=== PATIENT | female | born 1980 | race Hispanic/Latino ===

== ENCOUNTER 2017-09-26 21:04 | Emergency (ER) | payer SELFPAY ==
[2017-09-26] MEDS ORDERED: MEPERIDINE HCL 25 MG/0.5 ML ONE (21:37)
[2017-09-26] MEDS ORDERED: ONDANSETRON 4 MG/2 ML VIAL ONE (21:37)
[2017-09-26 21:50] LABS: Absolute Lymphocytes (CBC) 1.9 K/uL (0.7-4.9); Absolute Monocytes 0.8 K/uL (0.1-1.3); Absolute Neutrophil 4.4 K/uL (1.8-8.0); Basophils % 0.8 % (0-1.3); Eosinophils % 0.4 % (0-4.4); Hematocrit 27.8 % (36.0-45.0); Lymphocytes % 26.1 % (15.3-44.8); MCH 19.9 pg (27.0-35.0); MCV 63.5 fL (80-100); MPV 9.1 fL (7.6-11.3); Monocytes % 11.4 % (3.3-12.3); RBC Red Blood Cell Count 4.38 M/uL (3.86-4.86)
[2017-09-26 21:55] LABS: BUN Blood Urea Nitrogen 9 mg/dL (6-20); Bicarbonate 23 mEq/L (21-31); Glucose Level 105 mg/dL (65-120); Potassium 3.6 mEq/L (3.6-5.0); Sodium Level 137 mEq/L (135-145)
[2017-09-26 23:10] LABS: Urine Bacteria <20 /HPF (<20); Urine Culture Reflex Order NOT NEEDED; Urine RBC <5 /HPF (NONE SEEN)
[2017-09-26 23:11] LABS: Urine Blood NEGATIVE (NEG); Urine Glucose NEGATIVE (NEG); Urine Protein NEGATIVE (NEG)
[2017-09-26 23:15] LABS: Blood Morphology Comment NOTED (NOT SEEN); Hypochromasia 2+; Ovalocytes 2+; Platelet Estimate ADEQ; Target Cells 1+; Urine White Blood Cell Casts OK
[2017-09-26 23:16] LABS: Polychromasia 1+
--- NOTE | 2017-09-27 00:34 | ER ---
Nurse's Notes [facility] Name: Anais Andujar Age: 37 yrs Sex: Female : 1980 Arrival Date: 09/26/2017 Time: 21:06 Bed 16 Private MD: Diagnosis: Chest pain, unspecified Presentation: 09/26 21:18 Presenting complaint: Patient states: Started having chest pain this morning, pt ea reports the chest pain continued throughout the day and got worse. Transition of care: patient was not received from another setting of care. Onset of symptoms was September 26, 2017. Risk Assessment: Do you want to hurt yourself or someone else? Patient reports no desire to harm self or others. Initial Sepsis Screen: Does the patient meet any 2 criteria? No. Patient's initial sepsis screen is negative. Does the patient have a suspected source of infection? No. Patient's initial sepsis screen is negative. Care prior to arrival: None. 21:18 Method Of Arrival: Wheelchair ea 21:18 Acuity: RUDOLPH 3 ea Triage Assessment: 21:18 General: Appears uncomfortable, Behavior is anxious, crying, restless. Pain: Complains ea of pain in anterior aspect of left upper chest Pain radiates to back Pain currently is 10 out of 10 on a pain scale. Quality of pain is described as stabbing, Pain began This AM. EENT: No signs and/or symptoms were reported regarding the EENT system. Neuro: No deficits noted. Cardiovascular: Patient's skin is warm and dry. Respiratory: Airway is patent Respiratory effort is even, unlabored, Respiratory pattern is symmetrical, tachypnea. GI: Abdomen is non-distended. : No signs and/or symptoms were reported regarding the genitourinary system. Derm: Skin is dry, Skin is normal, Skin temperature is warm. Musculoskeletal: Circulation, motion, and sensation intact. 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 - Social history:: Smoking status: Patient/guardian denies using tobacco. - Ebola Screening: : No symptoms or risks identified at this time. - Family history:: not pertinent. - Hospitalizations: : No recent hospitalization is reported. Screenin:52 Abuse screen: Denies threats or abuse. Nutritional screening: No deficits noted. ea Tuberculosis screening: No symptoms or risk factors identified. Fall Risk None identified. Assessment: 21:05 Reassessment: Patient and/or family updated on plan of care and expected duration. Pain ea level reassessed. Patient is alert, oriented x 3, equal unlabored respirations, skin warm/dry/pink. Patient states symptoms have improved. 22:15 Reassessment: Patient and/or family updated on plan of care and expected duration. Pain ea level reassessed. Patient is alert, oriented x 3, equal unlabored respirations, skin warm/dry/pink. Patient states symptoms have improved. 23:45 Reassessment: Patient and/or family updated on plan of care and expected duration. Pain ea level reassessed. Patient is alert, oriented x 3, equal unlabored respirations, skin warm/dry/pink. Patient states symptoms have improved. 09/27 00:41 Reassessment: Patient and/or family updated on plan of care and expected duration. Pain ea level reassessed. Patient is alert, oriented x 3, equal unlabored respirations, skin warm/dry/pink. Patient states symptoms have improved. 00:55 Reassessment: Patient and/or family updated on plan of care and expected duration. Pain ea level reassessed. Patient is alert, oriented x 3, equal unlabored respirations, skin warm/dry/pink. Discharge instructions given to patient, verbalized the understanding of instruction. Patient states symptoms have improved. Vital Signs: 09/26 21:15 BP 140 / 100; Pulse 118; Resp 18; Pulse Ox 100% on R/A; Weight 63.5 kg; Height 5 ft. 5 ea in. (165.10 cm); Pain 10/10; 21:30 BP 132 / 85; Pulse 103; Resp 18; Pulse Ox 99% ; ea 22:00 BP 126 / 80; Pulse 73; Resp 18; Pulse Ox 100% on R/A; ea 23:00 BP 112 / 70; Pulse 83; Resp 18; Pulse Ox 99% ; Pain 10; ea 09/27 00:37 BP 114 / 79; Pulse 71; Resp 18; Pulse Ox 100% on R/A; mw2 09/26 21:15 Body Mass Index 23.30 (63.50 kg, 165.10 cm) ea ED Course: 09/26 21:06 Patient arrived in ED. am2 21:18 Patient has correct armband on for positive identification. Bed in low position. Call ea light in reach. Side rails up X 1. 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 Pulse ox on. NIBP on. 21:18 Arm band placed on right wrist. Patient placed in an exam room, on a stretcher, on ea pulse oximetry. 21:19 Papo Johnson MD is Attending Physician. rn 21:20 Inserted saline lock: 20 gauge in right forearm, using aseptic technique. Blood ea collected. 21:21 Irasema Dooley, ADRIANO is Primary Nurse. ea 21:30 Triage completed. ea 21:55 Patient maintains SpO2 saturation greater than 95% on room air. ea 22:03 XRAY Chest (1 view) In Process Unspecified. EDMS 22:[address] via wheelchair. vr 22:41 CT Aorta for Dissection In Process Unspecified. EDMS 22:58 CT completed. Patient tolerated procedure well. Patient moved back from CT. 2 06 00:42 No provider procedures requiring assistance completed. ea 01:08 IV discontinued, intact, bleeding controlled, No redness/swelling at site. Pressure ea dressing applied. Administered Medications: 09/26 21:36 CANCELLED (Physician Discretion): morphine 4 mg IVP once ea 21:40 Drug: Demerol 25 mg Route: IVP; Site: right forearm; ea 22:30 Follow up: Response: No adverse reaction; Pain is decreased ea 21:40 Drug: Zofran 2 mg Route: IVP; Site: right forearm; ea 22:30 Follow up: Response: No adverse reaction ea Outcome: 09/27 00:34 Discharge ordered by . rn 01:08 Discharged to home ambulatory, with family. ea 01:08 Condition: improved 01:08 Discharge instructions given to patient, Instructed on discharge instructions, follow up and referral plans. medication usage, Demonstrated understanding of instructions, follow-up care, medications, Prescriptions given X 1. 01:12 Patient left the ED. ea Signatures: Dispatcher [employer] EDMS Papo Johnson MD MD rn Davis, Victoria vr Moreno, Amanda on license of [facility] Sumi Saenz [facility] Dooley, Irasema, RN RN ea Torsten, MyKena mw2
--- NOTE | 2017-09-27 00:34 | EDPHYS ---
Physician Documentation [facility] Name: Anais Andujar Age: 37 yrs Sex: Female : 1980 Arrival Date: 09/26/2017 Time: 21:06 Bed 16 Private MD: ED Physician Papo Johnson HPI: 09/26 22:48 This 37 yrs old Female presents to ER via Wheelchair with complaints of Chest rn Pain > 30 y/o, Numbness Of Arm, Breathing Difficulty. 22:48 The patient or guardian reports chest pain that is located primarily in the anterior rn chest wall, left. The pain does not radiate. Associated signs and symptoms: Pertinent positives: shortness of breath, Pertinent negatives: abdominal pain, cough, diaphoresis, syncope, vomiting. The chest pain is described as a pressure, squeezing. Duration: The patient or guardian reports multiple episodes, that are intermittent. Modifying factors: The symptoms are alleviated by nothing. the symptoms are aggravated by palpation of area. Severity of pain: At its worst the pain was moderate in the emergency department the pain is unchanged. The patient has not experienced similar symptoms in the past. The patient has not recently seen a physician. 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 - Social history:: Smoking status: Patient/guardian denies using tobacco. - Ebola Screening: : No symptoms or risks identified at this time. - Family history:: not pertinent. - Hospitalizations: : No recent hospitalization is reported. ROS: 22:48 Constitutional: Negative for fever, chills, and weight loss, Eyes: Negative for injury, rn pain, redness, and discharge, Neck: Negative for injury, pain, and swelling, Cardiovascular: + chest pain Respiratory: + sob, no cough Abdomen/GI: Negative for abdominal pain, nausea, vomiting, diarrhea, and constipation, MS/Extremity: Negative for injury and deformity, Skin: Negative for injury, rash, and discoloration, Neuro: Negative for headache, weakness, numbness, tingling, and seizure. Exam: 22:48 Constitutional: This is a well developed, well nourished patient who is awake, alert, rn appears in pain and grabbing chest, hyperventilating Head/Face: Normocephalic, atraumatic. Eyes: Pupils equal round and reactive to light, extra-ocular motions intact. Lids and lashes normal. Conjunctiva and sclera are non-icteric and not injected. Cornea within normal limits. Periorbital areas with no swelling, redness, or edema. Neck: Trachea midline, no thyromegaly or masses palpated, and no cervical lymphadenopathy. Supple, full range of motion without nuchal rigidity, or vertebral point tenderness. No Meningismus. Chest/axilla: + reproducible left anterior chest wall, no crepitus Cardiovascular: tachycardic, regular, no murmur Respiratory: + hyperventilating, no wheezing, equal bilaterally Abdomen/GI: Soft, non-tender, with normal bowel sounds. No distension or tympany. No guarding or rebound. No evidence of tenderness throughout. Skin: Warm, dry with normal turgor. Normal color with no rashes, no lesions, and no evidence of cellulitis. MS/ Extremity: Pulses equal, no cyanosis. Neurovascular intact. Full, normal range of motion. Equal circumference. Neuro: Awake and alert, GCS 15, oriented to person, place, time, and situation. Cranial nerves II-XII grossly intact. Motor strength 5/5 in all extremities. Sensory grossly intact. Vital Signs: 21:15 BP 140 / 100; Pulse 118; Resp 18; Pulse Ox 100% on R/A; Weight 63.5 kg; Height 5 ft. 5 ea in. (165.10 cm); Pain 10/10; 21:30 BP 132 / 85; Pulse 103; Resp 18; Pulse Ox 99% ; ea 22:00 BP 126 / 80; Pulse 73; Resp 18; Pulse Ox 100% on R/A; ea 23:00 BP 112 / 70; Pulse 83; Resp 18; Pulse Ox 99% ; Pain 3/10; ea 09/27 00:37 BP 114 / 79; Pulse 71; Resp 18; Pulse Ox 100% on R/A; mw2 09/26 21:15 Body Mass Index 23.30 (63.50 kg, 165.10 cm) ea MDM: 09/26 21:20 Patient medically screened. rn 09/27 00:26 Differential diagnosis: acute pericarditis, anxiety, chest wall pain, costochondritis, rn pleurisy, pneumothorax, thoracic aortic disection. Data reviewed: vital signs, nurses notes, lab test result(s), EKG, radiologic studies, CT scan, and as a result, I will discharge patient. Counseling: I had a detailed discussion with the patient and/or guardian regarding: the historical points, exam findings, and any diagnostic results supporting the discharge/admit diagnosis, lab results, radiology results, the need for outpatient follow up, to return to the emergency department if symptoms worsen or persist or if there are any questions or concerns that arise at home. Response to treatment: the patient's symptoms have markedly improved after treatment, and as a result, I will discharge patient. Special discussion: Based on the patient's history, exam, and Dx evaluation, there is no indication for emergent intervention or inpatient Tx. It is understood by the patient/guardian that if the Sx's persist or worsen they need to return immediately for re-evaluation. I discussed with the patient/guardian in detail that at this point there is no indication for admission to the hospital. It is understood, however, that if the symptoms persist or worsen the patient needs to return immediately for re-evaluation. 00:33 Counseling: I had a detailed discussion with the patient and/or guardian regarding: the rn presence of at least one elevated blood pressure reading (>120/80) during this emergency department visit. Special discussion: I have referred the patient to see his PCP for further evaluation of high blood pressure. 09/26 21:25 Order name: CBC with Diff; Complete Time: 23:21 rn 09/26 21:25 Order name: Basic Metabolic Panel; Complete Time: 23:06 rn 09/26 21:25 Order name: Urine Microscopic Only; Complete Time: 23:21 rn 09/26 21:25 Order name: Troponin (emerg Dept Use Only); Complete Time: 23:06 rn 09/26 21:54 Order name: CBC Smear Scan; Complete Time: 23:21 EDMS 09/26 22:28 Order name: Urine Dipstick--Ancillary (enter results); Complete Time: 23:21 rg2 09/26 21:25 Order name: IV Start; Complete Time: 21:51 rn 09/26 21:25 Order name: XRAY Chest (1 view) rn 09/26 21:25 Order name: CT Aorta for Dissection rn 09/26 21:25 Order name: EKG; Complete Time: 21:26 rn 09/26 22:28 Order name: Urine --Ancillary (enter results); Complete Time: 23:21 rg2 09/26 21:25 Order name: Urine Test (obtain specimen); Complete Time: 22:39 rn 09/26 21:25 Order name: Urine Dipstick-Ancillary (obtain specimen); Complete Time: 22:39 rn 09/26 21:25 Order name: EKG - Nurse/Tech; Complete Time: 00:53 rn Administered Medications: 09/26 21:36 CANCELLED (Physician Discretion): morphine 4 mg IVP once ea 21:40 Drug: Demerol 25 mg Route: IVP; Site: right forearm; ea 22:30 Follow up: Response: No adverse reaction; Pain is decreased ea 21:40 Drug: Zofran 2 mg Route: IVP; Site: right forearm; ea 22:30 Follow up: Response: No adverse reaction ea Disposition: 09/27/17 00:34 Discharged to Home. Impression: Chest pain, unspecified. - Condition is Stable. - Discharge Instructions: Nonspecific Chest Pain, Chest Wall Pain. - Prescriptions for Ibuprofen 800 mg Oral Tablet - take 1 tablet by ORAL route every 12 hours As needed take with food; 20 tablet. - Medication Reconciliation Form, Thank You Letter, Antibiotic Education, Prescription Opioid Use form. - Follow up: Private Physician; When: As needed; Reason: Recheck today's complaints, Re-evaluation by your physician. - Problem is new. - Symptoms have improved. Signatures: Dispatcher [employer] EDLA Papo Johnson MD MD rn Antunez, Elena, RN RN ea Corrections: (The following items were deleted from the chart) 21:36 21:25 morphine 4 mg IVP once ordered. evita valencia 09/27 01:12 00:34 09/27/2017 00:34 Discharged to Home. Impression: Chest pain, unspecified. ea Condition is Stable. Forms are Medication Reconciliation Form, Thank You Letter, Antibiotic Education, Prescription Opioid Use. Follow up: Private Physician; When: As needed; Reason: Recheck today's complaints, Re-evaluation by your physician. Problem is new. Symptoms have improved. rn
--- NOTE | 2017-09-27 09:10 | EKG ---
Test Date: 2017-09-26 Test Time: 21:17:56 Pasteurizing Supervisor: SARATH MEASUREMENT RESULTS: Intervals: Rate: 122 TN: 96 QRSD: 90 QT: 324 QTc: 461 Sarita: P: 48 TN: 96 QRS: 79 T: 33 INTERPRETIVE STATEMENTS: Sinus tachycardia with short TN Otherwise normal ECG Compared to ECG 11/06/2016 16:46:31 Short TN interval now present Sinus bradycardia no longer present Electronically Signed On 09-27-17 09:08:30 CDT by Steve Gipson
--- NOTE | 2017-09-27 10:10 | RAD REPORT ---
EXAM DESCRIPTION: CT - Angio Aorta For Dissection - 09/27/2017 3:19 am CLINICAL HISTORY: . Chest pain epigastric pain COMPARISON: CT 2016 abdomen TECHNIQUE: Computed tomography angiography of the chest, abdomen pelvis were obtained. 100 cc Isovue 370 was administered intravenously. Coronal and sagittal reconstruction were performed. A preliminary report was generated by [employer] and reviewed prior to this dictation All CT scans are performed using dose optimization technique as appropriate and may include automated exposure control or mA/KV adjustment according to patient size. FINDINGS: An aortic dissection is not seen. An aortic aneurysm is not displayed. The celiac, SMA and PROSPER are patent . 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 A pericardial effusion is not seen. A pleural effusion is not n oted. The liver,spleen, pancreas adrenals kidneys demonstrate no significant abnormality. The appendix is normal. There no evidence diverticulitis. An irregularly shaped right ovarian follicle likely has recently ruptured. There is no significant fr ee fluid. A small umbilical hernia is seen IMPRESSION: Negative for an aortic dissection.
--- NOTE | 2017-09-27 10:11 | RAD REPORT ---
EXAM DESCRIPTION: Jc Single View09/26/2017 10:03 pm CLINICAL HISTORY: Chest pain COMPARISON: none FINDINGS: The lungs appear clear of acute infiltrate. The heart is normal size IMPRESSION: No acute abnormalities displayed
== END 2017-09-27 01:12 | disposition home or self-care (01) ==
LOC: ER 21:04
DX: R07.9 Chest pain, unspecified (principal); Z88.5 Allergy status to narcotic agent
CPT/HCPCS: 36415; 71045; 71275; 74175; 80048; 81003; 81015; 81025; 84484; 85025; 93005; 96374; 96375; 99285; J2175; J2405; Q9967

== ENCOUNTER 2020-08-25 11:30 | Inpatient (IN) | payer SELFPAY ==
--- OUTSIDE RECORDS SUMMARY | 2020-08-25 11:33 | XMS REPORT | Continuity of Care Document ---
:1980 Author Organization [facility] t Address [address] [place] [address] Care Team Providers Name Role Phone Jennifer [place], Zuleyka Tian Attending Clinician Unavailable Maycol JACKMAN, B Attending Clinician Doctor Unassigned, Name Attending Clinician Unavailable Thad PEREZP, N Attending Clinician Problems This patient has no known problems. Allergies, Adverse Reactions, Alerts This patient has no known allergies or adverse reactions. Medications This patient has no known medications. Procedures This patient has no known procedures. Encounters Start End Encounter Admission Attending Care Care Encounter Source Date/Time Date/Time Type Type Clinicians Facility Department ID 2020-04-19 2020-04-19 Letter PAUL Rodriguez [id number] 00:00:00 00:00:00 (Out) Zuleyka CALLAHAN [id number] [facility] [id number] 2020-04-18 2020-04-18 Emergency HANNAH Severino [id number] 15:44:00 18:06:00 Augie Cruz [id number] [place] [id number] [place] [id number] 2020-04-18 2020-04-18 Orders Doctor MILLER [id number] 00:00:00 00:00:00 Only SINDY [place] [id number] [facility] [id number] 2019-07-07 2019-07-07 Emergency Maycol [facility] [id number] 17:24:11 19:54:00 Augie Danielle Nancy [id number] [place] [id number] [place] [id number] 2019-07-07 2019-07-07 Orders Doctor PAUL [id number] 00:00:00 00:00:00 Only Unassigned, SINDY [id number] [place] [facility] [id number] 2018-12-13 2018-12-13 Office Thad [facility] [id number] 09:01:33 09:53:51 Visit Yarely Quigley DOCK GUARD [id number] [facility] [id number] MATERNAL [id number] & CHILD [address] [place] [address] Results This patient has no known results.
[2020-08-25] MEDS ORDERED: NA CHLORIDE 0.9% 1,000 ML ONE (12:45)
[2020-08-25 12:49] LABS: Urine Blood 3+ (Negative); Urine Glucose Negative (Negative); Urine Protein 1+ (Negative); Urine Specific Gravity 1.025 (1.005-1.030)
[2020-08-25 13:02] LABS: Absolute Lymphocytes (CBC) 1.4 K/uL (0.7-4.9); Basophils % 1.1 % (0-1.3); Hematocrit 24.1 % (36.0-45.0); Lymphocytes % 42.2 % (15.3-44.8); MPV 9.2 fL (7.6-11.3); RBC Red Blood Cell Count 4.11 M/uL (3.86-4.86)
[2020-08-25 13:08] LABS: Protime INR 0.97
--- NOTE | 2020-08-25 13:09 | RAD REPORT ---
EXAM DESCRIPTION: RAD - Chest Single View - 08/25/2020 1:02 pm CLINICAL HISTORY: COUGH Chest pain. COMPARISON: Chest Single View dated 09/26/2017 FINDINGS: Portable technique limits examination quality. The lungs are grossly clear. The heart is normal in size. No displaced fractures. IMPRESSION: No acute intrathoracic process suspected.
[2020-08-25 13:21] LABS: ALT/SGPT 28 U/L (12-78); AST/SGOT 23 U/L (15-37); Albumin 3.6 g/dL (3.4-5.0); Alkaline Phosphatase 48 U/L (45-117); BUN Blood Urea Nitrogen 14 mg/dL (7-18); Bicarbonate 27 mmol/L (21-32); Bilirubin Direct < 0.1 mg/dL (0-0.2); Bilirubin Total 0.4 mg/dL (0.2-1.0); Glucose Level 92 mg/dL (74-106); Magnesium 2.2 mg/dL (1.8-2.4); NT PRO-BNP 29 pg/mL (<125); Protein, Total 7.4 g/dL (6.4-8.2); Sodium Level 143 mmol/L (136-145); Troponin (Emerg Dept Use Only) < 0.02 ng/mL (0.0-0.045)
[2020-08-25 13:31] LABS: Anisocytosis 3+; Blood Morphology Comment NOTED (NOT SEEN); Hypochromasia 2+; Ovalocytes 1+; Platelet Estimate ADEQ; Polychromasia SLIGHT; Target Cells 3+; White Blood Cell Scan OK (OK)
--- NOTE | 2020-08-25 13:59 | RAD REPORT ---
EXAM DESCRIPTION: CT - Head Brain Wo Cont - 08/25/2020 1:53 pm CLINICAL HISTORY: Dizziness;Headache Headache, drowsiness COMPARISON: Head Brain Wo Cont dated 11/06/2016 TECHNIQUE: All CT scans are performed using dose optimization technique as appropriate and may inclu de automated exposure control or mA/KV adjustment according to patient size. FINDINGS: No intracranial hemorrhage, hydrocephalus or extra-axial fluid collection.No areas of brai n edema or evidence of midline shift. The paranasal sinuses and mastoids are clear. The calvarium is intact. IMPRESSION: No acute intracranial abnormality.
--- NOTE | 2020-08-25 14:03 | RAD REPORT ---
EXAM DESCRIPTION: CT - Head angio - 08/25/2020 1:54 pm CLINICAL HISTORY: Dizziness;Headache Headache, drowsiness COMPARISON: Head Brain Wo Cont dated 08/25/2020; Head Brain Wo Cont dated 11/06/2016 TECHNIQUE: CT angiography of the head was performed with MIPs. All CT scans are performed using dose optimization technique as appropriate and may include automated exposure control or mA/KV adjustment according to patient size. FINDINGS: No evidence of aneurysm is detected. No flow-limiting stenosis or vascular malformation id entified. Antegrade flow is seen in the vertebral arteries. The vertebral arteries are codominant. The visualized dural venous sinuses are patent. IMPRESSION: No significant flow abnormality is detected.
--- NOTE | 2020-08-25 14:09 | EDPHYS ---
Physician Documentation [facility] Name: Anais Andujar Age: 40 yrs Sex: Female : 1980 Arrival Date: 08/25/2020 Time: 11:33 Bed 13 Private MD: ED Physician Munir Donald HPI: 08/25 13:05 This 40 yrs old Female presents to ER via Ambulatory with complaints of jasmeet Dizziness, Headache. 13:05 The patient presents with dizziness, generalized weakness. Onset: The symptoms/episode jasmeet began/occurred 10 hour(s) ago. Context: occurred at home, occurred while the patient was at rest. Modifying factors: The symptoms are alleviated by nothing, the symptoms are aggravated by movement of head, standing up. Associated signs and symptoms: Pertinent positives: nausea. Severity of symptoms: At their worst the symptoms were mild in the emergency department the symptoms are unchanged. Patient's baseline: Neuro:. The patient has not experienced similar symptoms in the past. 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 - Social history:: Smoking status: Patient denies any tobacco usage or history of. - Family history:: not pertinent. ROS: 13:05 Constitutional: Negative for fever, chills, and weight loss, Eyes: Negative for injury, jasmeet pain, redness, and discharge, ENT: Negative for injury, pain, and discharge, Neck: Negative for injury, pain, and swelling, Cardiovascular: Negative for chest pain, palpitations, and edema, Respiratory: Negative for shortness of breath, cough, wheezing, and pleuritic chest pain, Abdomen/GI: Negative for abdominal pain, nausea, vomiting, diarrhea, and constipation, Back: Negative for injury and pain, : Negative for injury, bleeding, discharge, and swelling, MS/Extremity: Negative for injury and deformity, Skin: Negative for injury, rash, and discoloration, Psych: Negative for depression, anxiety, suicide ideation, homicidal ideation, and hallucinations, Allergy/Immunology: Negative for hives, rash, and allergies, Endocrine: Negative for neck swelling, polydipsia, polyuria, polyphagia, and marked weight changes, Hematologic/Lymphatic: Negative for swollen nodes, abnormal bleeding, and unusual bruising. 13:05 Neuro: Positive for headache, weakness. Exam: 13:05 Constitutional: This is a well developed, well nourished patient who is awake, alert, jasmeet and in no acute distress. Head/Face: Normocephalic, atraumatic. Eyes: Pupils equal round and reactive to light, extra-ocular motions intact. Lids and lashes normal. Conjunctiva and sclera are non-icteric and not injected. Cornea within normal limits. Periorbital areas with no swelling, redness, or edema. ENT: Nares patent. No nasal discharge, no septal abnormalities noted. Tympanic membranes are normal and external auditory canals are clear. Oropharynx with no redness, swelling, or masses, exudates, or evidence of obstruction, uvula midline. Mucous membranes moist. Neck: Trachea midline, no thyromegaly or masses palpated, and no cervical lymphadenopathy. Supple, full range of motion without nuchal rigidity, or vertebral point tenderness. No Meningismus. Chest/axilla: Normal chest wall appearance and motion. Nontender with no deformity. No lesions are appreciated. Cardiovascular: Regular rate and rhythm with a normal S1 and S2. No gallops, murmurs, or rubs. Normal PMI, no JVD. No pulse deficits. Respiratory: Lungs have equal breath sounds bilaterally, clear to auscultation and percussion. No rales, rhonchi or wheezes noted. No increased work of breathing, no retractions or nasal flaring. Abdomen/GI: Soft, non-tender, with normal bowel sounds. No distension or tympany. No guarding or rebound. No evidence of tenderness throughout. Back: No spinal tenderness. No costovertebral tenderness. Full range of motion. Female : Normal external genitalia. MS/ Extremity: Pulses equal, no cyanosis. Neurovascular intact. Full, normal range of motion. Neuro: Awake and alert, GCS 15, oriented to person, place, time, and situation. Cranial nerves II-XII grossly intact. Motor strength 5/5 in all extremities. Sensory grossly intact. Cerebellar exam normal. Normal gait. Psych: Awake, alert, with orientation to person, place and time. Behavior, mood, and affect are within normal limits. 13:05 Skin: Appearance: Color: pale, Temperature: normal temperature, Moisture: normal moisture, petechiae, not noted, abscess, not appreciated, cellulitis, is not appreciated, induration, is not appreciated. 13:05 Neuro: Orientation: is normal, appropriate for stated age, no acute changes, Mentation: is normal, appropriate for stated age, no acute changes, Memory: is normal, appropriate for stated age, no acute changes, Cranial nerves: grossly normal, is grossly normal based on the patient's age, no acute changes, Motor: is normal, is grossly normal based on the patient's age, no acute changes, moves all fours, Gait: not applicable is steady, Deep tendon reflexes are 2+ (normal) in the bilateral brachioradialis, bicep, tricep and patellar and Achilles tendons. 13:09 ECG was reviewed by the Attending Physician. [facility] Vital Signs: 11:50 BP 112 / 77; Pulse 63; Resp 17; Temp 97.9; Pulse Ox 100% on R/A; Weight 72.57 kg; jl7 Height 5 ft. 5 in. (165.10 cm); Pain 9/10; 12:30 BP 112 / 76; Pulse 70; Resp 18; Pulse Ox 100% on R/A; vg1 13:00 BP 104 / 73; Pulse 62; Resp 16; Pulse Ox 100% on R/A; vg1 14:00 BP 126 / 76; Pulse 72; Resp 16; Pulse Ox 100% on R/A; vg1 15:00 BP 128 / 82; Pulse 72; Resp 16; Pulse Ox 100% on R/A; vg1 16:00 BP 110 / 76; Pulse 64; Resp 18; Pulse Ox 100% on R/A; vg1 11:50 Body Mass Index 26.63 (72.57 kg, 165.10 cm) 7 MDM: 12:14 Patient medically screened. [facility] 13:08 Differential diagnosis: generalized weakness, idiopathic dizziness, near-syncope, TIA. [facility] Data reviewed: vital signs, nurses notes, lab test result(s), EKG, radiologic studies, doppler, plain films. 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 Test interpretation: by ED physician or midlevel provider: ECG, plain radiologic studies. Counseling: I had a detailed discussion with the patient and/or guardian regarding: the historical points, exam findings, and any diagnostic results supporting the discharge/admit diagnosis, lab results, radiology results. 14:25 ED course: d/w son with atranslator, this is not the worst nguyen of life , six years had a jasmeet severe, much worse nguyen, received a spinal tap, refuses tap tap today, mild nguyen compared to the past. 08/25 12:18 Order name: Basic Metabolic Panel [facility] 08/25 12:18 Order name: CBC with Diff [facility] 08/25 12:18 Order name: LFT's; Complete Time: 13:35 [facility] 08/25 12:18 Order name: Magnesium; Complete Time: 13:35 [facility] 08/25 12:18 Order name: NT PRO-BNP; Complete Time: 13:35 [facility] 08/25 12:18 Order name: PT-INR; Complete Time: 13:35 [facility] 08/25 12:18 Order name: Troponin (emerg Dept Use Only); Complete Time: 13:35 [facility] 08/25 12:18 Order name: Urine Culture [facility] 08/25 12:18 Order name: Basic Metabolic Panel; Complete Time: 13:35 [facility] 08/25 12:18 Order name: CBC with Automated Diff; Complete Time: 13:35 [facility] 08/25 12:49 Order name: Urine Dipstick-Ancillary; Complete Time: 13:04 [facility] 08/25 13:10 Order name: CBC Smear Scan; Complete Time: 13:35 [facility] 08/25 13:14 Order name: Folic Acid,Serum (folate) [facility] 08/25 13:14 Order name: B12 [facility] 08/25 13:14 Order name: Retic Count [facility] 08/25 13:14 Order name: TIBC [facility] 08/25 13:14 Order name: Iron Level [facility] 08/25 13:14 Order name: Ferritin [facility] 08/25 13:14 Order name: CSF Profile [facility] 08/25 13:14 Order name: Folic Acid, (Folate) [facility] 08/25 13:15 Order name: CSF Profile [facility] 08/25 13:15 Order name: Type And Screen [facility] 08/25 13:55 Order name: COVID-19 : Document "Date of Symptom Onset" if Symptomatic. vg1 08/25 12:18 Order name: XRAY Chest (1 view); Complete Time: 13:10 [facility] 08/25 12:18 Order name: EKG; Complete Time: 12:19 [facility] 08/25 12:18 Order name: Cardiac monitoring; Complete Time: 12:54 [facility] 08/25 12:18 Order name: EKG - Nurse/Tech; Complete Time: 12:55 [facility] 08/25 12:18 Order name: IV Saline Lock; Complete Time: 12:55 [facility] 08/25 12:18 Order name: Labs collected and sent; Complete Time: 12:55 [facility] 08/25 12:18 Order name: O2 Per Protocol; Complete Time: 12:21 [facility] 08/25 12:18 Order name: O2 Sat Monitoring; Complete Time: 12:21 [facility] 08/25 12:18 Order name: CT Head Brain wo Cont [facility] 08/25 12:18 Order name: CT Head Angio [facility] 08/25 12:18 Order name: Urine Dipstick-Ancillary (obtain specimen); Complete Time: 12:55 [facility] 08/25 12:18 Order name: Urine Test (obtain specimen); Complete Time: 12:55 [facility] 08/25 14:19 Order name: US Transvaginal Study (Probe) [facility] 08/25 14:38 Order name: Packed RBC Leukored EDMS 08/25 15:34 Order name: Comprehensive Metabolic Panel EDMS 08/25 15:34 Order name: Comprehensive Metabolic Panel EDMS 08/25 15:34 Order name: Folic Acid, (Folate) EDMS 08/25 15:34 Order name: Folic Acid, (Folate) EDMS 08/25 15:34 Order name: Iron EDMS 08/25 15:34 Order name: Iron EDMS 08/25 15:34 Order name: Protime (+INR) EDMS 08/25 15:34 Order name: Protime (+INR) EDMS 08/25 15:34 Order name: PTT, Activated Partial Thromb EDMS 08/25 15:34 Order name: Vitamin B12 Level EDMS 08/25 15:34 Order name: Vitamin B12 Level EDMS 08/25 15:34 Order name: Regular EDMS 08/25 15:34 Order name: CBC with Automated Diff EDMS 08/25 15:34 Order name: CBC with Automated Diff EDMS 08/25 15:34 Order name: PTT, Activated Partial Thromb EDMS 08/25 17:04 Order name: SARS-COV-2 RT PCR EDMS 08/25 13:14 Order name: Lumbar Puncture Setup; Complete Time: 13:51 jasmeet 08/25 14:04 Order name: Transfuse; Complete Time: 16:07 jasmeet EC:09 Rate is 65 beats/min. Rhythm is regular. QRS [place] is Normal. [place] interval is normal. QRS jasmeet interval is normal. QT interval is normal. No Q waves. T waves are Normal. No ST changes noted. Clinical impression: Normal ECG and No evidence of ischemia. Interpreted by me. Reviewed by me. Administered Medications: 12:49 Drug: NS 0.9% 1000 ml Route: IV; Rate: 1 bolus; Site: right antecubital; vg1 15:30 Follow up: IV Status: Completed infusion; IV Intake: 1000ml jl7 Disposition: 08/25/20 14:08 Hospitalization ordered by Alfred Barron for Observation. Preliminary diagnosis are Headache - severe/sudden, Dizziness and giddiness, Anemia, unspecified - 7.1, Other abnormal uterine and vaginal bleeding - metromenorrhagia. - Bed requested for Telemetry/MedSurg (observation). - Status is Observation. vg1 - Condition is Stable. - Problem is new. - Symptoms have improved. Signatures: Dispatcher [employer] EDLisbet Bryan, RN Munir Pineda MD MD cha Leal, Jahala, RN RN jl7 Sumi García RN RN vg1 Corrections: (The following items were deleted from the chart) 13:15 13:15 Folic Acid, (Folate) ordered. EDRI EDMS 13:15 13:15 Vitamin B12 Level ordered. EDMS EDMS 13:15 13:15 Retic Count ordered. EDMS EDMS 13:15 13:15 Transferrin Sat/Iron Binding ordered. EDMS EDMS 13:15 13:15 Ferritin ordered. EDMS EDMS 13:15 13:15 Ferritin ordered. EDMS EDMS 13:58 13:14 SPINAL FLUID PROFILE+LAB.LAB.BRZ ordered. EDRI EDMS 14:24 14:08 Hospitalization Ordered by Alfred Barron MD for Observation. Preliminary jasmeet diagnosis is Headache - severe/sudden; Dizziness and giddiness; Anemia, unspecified - 7.1. Bed requested for Telemetry/MedSurg (observation). Status is Observation. Condition is Stable. Problem is new. Symptoms have improved. jasmeet 14:26 13:14 LP Consents ordered. jasmeet vg1 18:09 14:24 08/25/2020 14:08 Hospitalization Ordered by Alfred Barron MD for Observation. dw Preliminary diagnosis is Headache - severe/sudden; Dizziness and giddiness; Anemia, unspecified - 7.1; Other abnormal uterine and vaginal bleeding - metromenorrhagia. Bed requested for Telemetry/MedSurg (observation). Status is Observation. Condition is Stable. Problem is new. Symptoms have improved. jasmeet 18:49 18:09 08/25/2020 14:08 Hospitalization Ordered by Alfred Barron MD for Observation. vg1 Preliminary diagnosis is Headache - severe/sudden; Dizziness and giddiness; Anemia, unspecified - 7.1; Other abnormal uterine and vaginal bleeding - metromenorrhagia. Bed requested for Telemetry/MedSurg (observation). Status is Observation. Condition is Stable. Problem is new. Symptoms have improved. dw
--- NOTE | 2020-08-25 14:09 | ER ---
Nurse's Notes [facility] Name: Anais Andujar Age: 40 yrs Sex: Female : 1980 Arrival Date: 08/25/2020 Time: 11:33 Bed 13 Private MD: Diagnosis: Headache-severe/sudden;Dizziness and giddiness;Anemia, unspecified-7.1;Other abnormal uterine and vaginal bleeding-metromenorrhagia Presentation: 08/25 11:50 Chief complaint: Patient states: DOMINGUEZ started at 1900 last night and woke with dizziness jl7 this morning, felt nauseous on the drive over just now. Coronavirus screen: Client denies travel out of the [place] in the last 14 days. At this time, the client does not indicate any symptoms associated with coronavirus-19. Ebola Screen: No symptoms or risks identified at this time. Initial Sepsis Screen: Does the patient meet any 2 criteria? No. Patient's initial sepsis screen is negative. Does the patient have a suspected source of infection? No. Patient's initial sepsis screen is negative. Risk Assessment: Do you want to hurt yourself or someone else? Patient reports no desire to harm self or others. Onset of symptoms was August 24, 2020 at 19:00. Care prior to arrival: None. 11:50 Method Of Arrival: Ambulatory [facility] 11:50 Acuity: RUDOLPH 3 jl7 Triage Assessment: 11:57 Headache History: The patient has had previous headaches and this one is similar to jl7 previous episodes. General: Appears in no apparent distress. uncomfortable, Behavior is calm, cooperative, appropriate for age. Pain: Complains of pain in DOMINGUEZ Pain currently is 9 out of 10 on a pain scale. Quality of pain is described as squeezing, Pain began 1 day ago. Is continuous, Also complains of nausea. Neuro: Level of Consciousness is awake, alert, obeys commands, Oriented to person, place, time, situation, Moves all extremities. Full function Gait is steady, Facial symmetry appears normal. 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 - Social history:: Smoking status: Patient denies any tobacco usage or history of. - Family history:: not pertinent. Screenin:30 Abuse screen: Denies threats or abuse. Nutritional screening: No deficits noted. jl7 Tuberculosis screening: No symptoms or risk factors identified. Fall Risk No fall in past 12 months (0 pts). No secondary diagnosis (0 pts). IV access (20 points). Ambulatory Aid- None/Bed Rest/Nurse Assist (0 pts). Gait- Weak (10 pts.). Mental Status- Oriented to own ability (0 pts). Total Sadler Fall Scale indicates Low Risk Score (25-44 pts). Fall prevention measures have been instituted. Side Rails Up X 2 Placed close to Nursing Station 1:1 attendant Assigned to Pt. Family Present and informed to notify staff if they need to leave bedside. Assessment: 12:25 General: Appears in no apparent distress. uncomfortable, Behavior is calm, cooperative. vg1 Pain: Complains of pain in head Pain currently is 8 out of 10 on a pain scale. Pain began 1 day ago. Noted to be grimacing. Neuro: Level of Consciousness is awake, alert, obeys commands, Oriented to person, place, time, situation, Reports dizziness. Cardiovascular: Patient's skin is warm and dry. Respiratory: Airway is patent Respiratory effort is even, unlabored. GI: Reports nausea, Patient currently denies diarrhea, vomiting. : No signs and/or symptoms were reported regarding the genitourinary system. EENT: No signs and/or symptoms were reported regarding the EENT system. Derm: Skin is intact, is healthy with good turgor. Musculoskeletal: Circulation, motion, and sensation intact. 13:30 Reassessment: Patient appears in no apparent distress at this time. No changes from vg1 previously documented assessment. Patient and/or family updated on plan of care and expected duration. Pain level reassessed. Patient is alert, oriented x 3, equal unlabored respirations, skin warm/dry/pink. 15:00 Reassessment: Patient appears in no apparent distress at this time. Patient and/or vg1 family updated on plan of care and expected duration. Pain level reassessed. Patient is alert, oriented x 3, equal unlabored respirations, skin warm/dry/pink. 16:14 Reassessment: Patient appears in no apparent distress at this time. Patient and/or vg1 family updated on plan of care and expected duration. Pain level reassessed. Patient is alert, oriented x 3, equal unlabored respirations, skin warm/dry/pink. Blood transfusion of first unit began at 1540. Please refer to transfusion record. 18:18 Reassessment: Patient appears in no apparent distress at this time. Patient and/or vg1 family updated on plan of care and expected duration. Pain level reassessed. Patient is alert, oriented x 3, equal unlabored respirations, skin warm/dry/pink. First unit of blood completed at 1800. 18:21 Reassessment: Attempted to call report. vg1 Vital Signs: 11:50 BP 112 / 77; Pulse 63; Resp 17; Temp 97.9; Pulse Ox 100% on R/A; Weight 72.57 kg; jl7 Height 5 ft. 5 in. (165.10 cm); Pain 9/10; 12:30 BP 112 / 76; Pulse 70; Resp 18; Pulse Ox 100% on R/A; vg1 13:00 BP 104 / 73; Pulse 62; Resp 16; Pulse Ox 100% on R/A; vg1 14:00 BP 126 / 76; Pulse 72; Resp 16; Pulse Ox 100% on R/A; vg1 15:00 BP 128 / 82; Pulse 72; Resp 16; Pulse Ox 100% on R/A; vg1 16:00 BP 110 / 76; Pulse 64; Resp 18; Pulse Ox 100% on R/A; vg1 11:50 Body Mass Index 26.63 (72.57 kg, 165.10 cm) jl7 ED Course: 11:33 Patient arrived in ED. ds1 11:57 Triage completed. jl7 11:57 Arm band placed on right wrist. jl7 12:14 Munir Donald MD is Attending Physician. jasmeet 12:19 Sumi García, ADRIANO is Primary Nurse. vg1 12:30 Inserted saline lock: 20 gauge in right antecubital area, using aseptic technique. vg1 ,using aseptic technique. Completed by ALONDRA Heredia Tech. 13:02 XRAY Chest (1 view) In Process Unspecified. EDMS 13:[address] via stretcher. vg1 13:53 CT Head Brain wo Cont In Process Unspecified. EDMS 13:53 CT Head Angio In Process Unspecified. EDMS 14:05 Alfred Barron MD is Hospitalizing Provider. [facility] 15:58 US Transvaginal Study (Probe) In Process Unspecified. EDMS 16:17 Patient has correct armband on for positive identification. Placed in gown. Bed in low jl7 position. Call light in reach. Side rails up X2. 18:18 No provider procedures requiring assistance completed. Patient admitted, IV remains in vg1 place. Administered Medications: 12:49 Drug: NS 0.9% 1000 ml Route: IV; Rate: 1 bolus; Site: right antecubital; vg1 15:30 Follow up: IV Status: Completed infusion; IV Intake: 1000ml jl7 Intake: 15:30 IV: 1000ml; Total: 1000ml. jl7 Outcome: 14:08 Decision to Hospitalize by Provider. [facility] 18:33 Admitted to Med/surg accompanied by tech, via stretcher, room 405, with chart, Report vg1 called to ADRIANO Johns 18:33 Condition: stable 18:33 Instructed on the need for admit. 18:49 Patient left the ED. vg1 Signatures: Dispatcher [employer] Munir Weaver MD MD cha Sanford, Demi ds1 Navya Vargas RN RN [email or web address] Sumi García RN RN vg1 Corrections: (The following items were deleted from the chart) 16:24 13:30 Reassessment: Patient appears in no apparent distress at this time. No changes jl7 from previously documented assessment. Patient and/or family updated on plan of care and expected duration. Pain level reassessed. Patient is alert, oriented x 3, equal unlabored respirations, skin warm/dry/pink. jl7 16:24 15:00 Reassessment: No changes from previously documented assessment. Patient and/or jl7 family updated on plan of care and expected duration. Pain level reassessed. Patient is alert, oriented x 3, equal unlabored respirations, skin warm/dry/pink. jl7 16:24 16:14 Reassessment: Patient appears in no apparent distress at this time. Patient is jl7 alert, oriented x 3, equal unlabored respirations, skin warm/dry/pink. Blood transfusion of first unit began at 1540. Please refer to Transfusion record for vitals. jl7
[2020-08-25 15:00] LABS: RBC Red Blood Cell Count 4.13 M/uL (3.86-4.86)
[2020-08-25] MEDS ORDERED: ONDANSETRON 4 MG/2 ML VIAL IV PRN (15:30)
[2020-08-25] MEDS ORDERED: NA CHLORIDE 0.9% 250 ML ONE ×2 (15:34→22:32)
[2020-08-25] MEDS ORDERED: DIPHENHYDRAMINE 50 MG/ML VIAL ONE (15:36)
[2020-08-25] MEDS ORDERED: ACETAMINOPHEN 325 MG TABLET ONE (15:36)
[2020-08-25 16:31] LABS: Ferritin 1.6 ng/mL (8-388); Folic Acid, (Folate) 17.7 ng/mL (3.1-17.5)
--- NOTE | 2020-08-25 17:03 | RAD REPORT ---
EXAM DESCRIPTION: US - Transvaginal Study Probe - 08/25/2020 3:59 pm CLINICAL HISTORY: ciara/metrorrhagia Pelvic pain. COMPARISON: Transvaginal Study Probe dated 12/17/2015 FINDINGS: The uterus is normal in size, shape and echotexture. The uterus measures 8.9 x 5.5 x 4.6 c m. The endometrial stripe measures 6 mm. Echogenic soft tissue is seen within the endometrial canal surr ounded by mild fluid suspicious for endometrial polyp. Both ovaries are normal in size, shape and echotexture. The right ovary measures 3.4 x 2.2 x 1.7 cm. The left ovary measures 3.1 x 2.0 x 1.6 cm. No ovarian or parovarian lesions. No adnexal masses. Normal Doppler blood flow was demonstrated to both ovaries. No significant pelvic ascites. IMPRESSION: Endometrial polyp is suspected in the endometrial canal. Advise direct visualization wit h hysteroscopy followup.
[2020-08-25 18:01] VITALS: BMI 26.2
[2020-08-26] MEDS: NA CHLORIDE 0.9% 1,000 ML IV SCH ×2 (01:15→05:20)
[2020-08-26] MEDS ORDERED: ACETAMINOPHEN 500 MG TAB PO PRN (01:57)
[2020-08-26 07:06] LABS: Absolute Lymphocytes (CBC) 1.7 K/uL (0.7-4.9); Basophils % 0.7 % (0-1.3); Hematocrit 29.7 % (36.0-45.0); Lymphocytes % 45.1 % (15.3-44.8); MPV 9.2 fL (7.6-11.3); RBC Red Blood Cell Count 4.61 M/uL (3.86-4.86)
[2020-08-26 07:29] LABS: Protime INR 1.01
[2020-08-26 07:50] LABS: ALT/SGPT 25 U/L (12-78); AST/SGOT 17 U/L (15-37); Albumin 3.1 g/dL (3.4-5.0); Alkaline Phosphatase 43 U/L (45-117); BUN Blood Urea Nitrogen 11 mg/dL (7-18); Bicarbonate 25 mmol/L (21-32); Bilirubin Total 0.4 mg/dL (0.2-1.0); Folic Acid, (Folate) 11.1 ng/mL (3.1-17.5); Glucose Level 89 mg/dL (74-106); Potassium 3.7 mmol/L (3.5-5.1); Protein, Total 6.4 g/dL (6.4-8.2); Sodium Level 142 mmol/L (136-145)
[2020-08-26 10:46] LABS: Anisocytosis 3+; Blood Morphology Comment NOTED (NOT SEEN); Hypochromasia 1+; Platelet Estimate ADEQ; Platelets, Giant PRESENT; Poikilocytosis SLIGHT
[2020-08-26 10:47] LABS: Ovalocytes 1+
[2020-08-26] MEDS ORDERED: CYANOCOBALAMIN 1000MCG/ML INJ IM ONE (12:00)
[2020-08-26 12:37] VITALS: O2SAT 99
[2020-08-26 12:40] VITALS: BP 129/74; TEMP 97.9
[2020-08-26] MEDS ORDERED: SOD FERRIC GLUC COMPLX/SUCROSE 125 MG in NA CHLORIDE 0.9% 100 ML IV SCH (13:00)
--- NOTE | 2020-08-31 00:48 | P.HP ---
Certification for Inpatient Patient admitted to: Inpatient With expected LOS: >2 Midnights Patient will require the following post-hospital care: None Practitioner: I am a practitioner with admitting privileges, knowledge of patient current condition, hospital course, and medical plan of care. Services: Services provided to patient in accordance with Admission requirements found in Title 42 Section 412.3 of the Code of Federal Regulations Patient History Date of Service: 08/25/20 Reason for admission: Iron-deficiency anemia; menorrhagia History of Present Illness: Patient is a 40-year-old female who came to the hospital with menorrhagia. Patient has severe anemia. Patient was admitted to the hospital for evaluation of anemia. Patient was transfused 2 units of packed red blood cell. Patient will be admitted to the hospital for further workup. Transvaginal ultrasound has been ordered. And endometrial polyp was found. Patient will need further workup as an outpatient by gynecology. Allergies morphine Allergy (Verified 08/26/20 02:12) Unknown Home Medications: Cyanocobalamin (Vitamin B-12) [Vitamin B12] 5,000 mcg PO DAILY #30 tab.rapdis 08/26/20 Ferrous Sulfate [Ferrous Sulfate Elixir] 5 ml PO BID #300 ml 08/26/20 - Past Medical/Surgical History Past Medical History: Patient denies medical history -: Anemia -: Menorrhagia Past Surgical History: Patient denies surgical history - Family History Father Family History: Reviewed- Non-Contributory - Social History Smoking Status: Never smoker Alcohol use: No CD- Drugs: No Caffeine use: No Place of Residence: Home Review of Systems 10-point ROS is otherwise unremarkable Physical Examination - Vital Signs Temperature: 97.9 F Blood Pressure: 129/74 Pulse: 60 Respirations: 16 Pulse Ox (%): 99 - Physical Exam General: Alert, In no apparent distress, Oriented x3 HEENT: Atraumatic, PERRLA, Mucous membr. moist/pink, EOMI, Sclerae nonicteric Neck: Supple, 2+ carotid pulse no bruit, No LAD, Without JVD or thyroid abnormality Respiratory: Clear to auscultation bilaterally, Normal air movement Cardiovascular: Regular rate/rhythm, Normal S1 S2, No murmurs Gastrointestinal: Normal bowel sounds, Soft and benign, Non-distended, No tenderness Musculoskeletal: No clubbing, No swelling, No tenderness Integumentary: No rashes Neurological: Normal gait, Normal speech, Normal strength at 5/5 x4 extr, Normal tone, Sensation intact, Cranial nerves 3-12 intact, Normal affect Lymphatics: No axilla or inguinal lymphadenopathy Assessment & Plan - Problems (Diagnosis) (1) Menorrhagia Status: Acute (2) Iron deficiency anemia Status: Acute (3) B12 deficiency anemia Status: Acute - Plan Plan: 1. Blood transfusion 2. Transvaginal ultrasound 3. Monitor H&H 4. B12 and iron supplementation 5. GI and DVT prophylaxis Discharge Plan: Home Plan to discharge in: Greater than 2 days - Advance Directives Does patient have a Living Will: No Does patient have a Durable POA for Healthcare: No - Code Status/Comfort Care Code Status Assessed: Yes Code Status: Full Code Critical Care: No Time Spent Managing PTS Care (In Minutes): 35
--- NOTE | 2020-08-31 00:52 | P.DS ---
Discharge Date: 08/26/20 Disposition: ROUTINE DISCHARGE Discharge Condition: GOOD Reason for Admission: Iron-deficiency anemia; menorrhagia - Problems (1) Menorrhagia Status: Acute (2) Iron deficiency anemia Status: Acute (3) B12 deficiency anemia Status: Acute Brief History of Present Illness: Patient is a 40-year-old female who came to the hospital with menorrhagia. Patient has severe anemia. Patient was admitted to the hospital for evaluation of anemia. Patient was transfused 2 units of packed red blood cell. Patient will be admitted to the hospital for further workup. Transvaginal ultrasound has been ordered. And endometrial polyp was found. Patient will need further workup as an outpatient by gynecology. Hospital Course: Patient was transfused 2 units of packed red blood cells. Patient's hemoglobin has been stable. Patient was supplemented and at this time patient is clinically doing much better. Transvaginal ultrasound revealed endometrial polyp which needs to be followed up as an outpatient with gynecology. Patient is stable for discharge home. Vital Signs/Physical Exam: Temp Pulse Resp BP Pulse Ox 97.9 F 60 16 129/74 99 08/31/20 00:50 08/31/20 00:50 08/31/20 00:50 08/31/20 00:50 08/31/20 00:50 General: Alert, In no apparent distress, Oriented x3 Laboratory Data at Discharge: WBC 3.70 K/uL (4.3-10.9) L D 08/26/20 06:07 Hgb 9.2 g/dL (12.0-15.0) L 08/26/20 06:07 Hct 29.7 % (36.0-45.0) L D 08/26/20 06:07 Plt Count 239 K/uL (152-406) 08/26/20 06:07 PT 11.6 SECONDS (9.5-12.5) 08/26/20 06:07 INR 1.01 08/26/20 06:07 APTT 27.0 SECONDS (24.3-36.9) 08/26/20 06:07 Sodium 142 mmol/L (136-145) 08/26/20 06:07 Potassium 3.7 mmol/L (3.5-5.1) 08/26/20 06:07 BUN 11 mg/dL (7-18) 08/26/20 06:07 Creatinine 0.45 mg/dL (0.55-1.3) L 08/26/20 06:07 Glucose 89 mg/dL (74-106) 08/26/20 06:07 Magnesium 2.2 mg/dL (1.8-2.4) 08/25/20 12:40 Total Bilirubin 0.4 mg/dL (0.2-1.0) 08/26/20 06:07 AST 17 U/L (15-37) 08/26/20 06:07 ALT 25 U/L (12-78) 08/26/20 06:07 Alkaline Phosphatase 43 U/L (45-117) L 08/26/20 06:07 Home Medications: Cyanocobalamin (Vitamin B-12) [Vitamin B12] 5,000 mcg PO DAILY #30 tab.rapdis 08/26/20 Ferrous Sulfate [Ferrous Sulfate Elixir] 5 ml PO BID #300 ml 08/26/20 New Medications: Ferrous Sulfate [Ferrous Sulfate Elixir] 5 ml PO BID #300 ml Cyanocobalamin (Vitamin B-12) [Vitamin B12] 5,000 mcg PO DAILY #30 tab.rapdis Physician Discharge Instructions: PROBLEM: Iron deficiency anemia, Blood transfusion GOAL: Clear understanding of disease process E-scripts sent to [facility] in [place]. INSTRUCTIONS: - Ok to discontinue IV and discharge home. - Follow up with your primary care provider in 1-2 weeks. - Follow up gynecology in 1-2 weeks. - Return to the ER if your symptoms worsen. - Call or text Dr. Barron at if any questions regarding hospital stay. - Please call the floor at if you have any medication or nursing questions. Diet: Heart healthy Activity: Fall precautions IMMUNIZATION Influenza Vaccine Indicated: Influenza Vaccine Given: Date Given: Pneumonia Vaccine Indicated: No Pneumonia Vaccine Given: Date Given: Diet: AHA Activity: Fall precautions Followup: Henrietta Villegas MD [ACTIVE - CAN ADMIT] - 1-2 Weeks (Follow up in office in 1-2 weeks. Call to schedule an appointment. ) Time spent managing pt's care (in minutes): 35
== END 2020-08-26 15:21 | disposition home or self-care (01) | DRG 761 ==
LOC: ER 11:30 → ERHOLD 16:04 → 4TH 18:34
PROVIDERS: ADMIT Hospitalist; ATTEND Hospitalist
PROC: 30233N1 Transfusion of Nonautologous Red Blood Cells into Peripheral Vein, Percutaneous Approach (ICD-10-PCS; principal; 2020-08-25)
DX: N84.0 Polyp of corpus uteri (principal); N92.0 Excessive and frequent menstruation with regular cycle; D51.9 Vitamin B12 deficiency anemia, unspecified; D50.9 Iron deficiency anemia, unspecified; Z88.5 Allergy status to narcotic agent; Z98.51 Tubal ligation status; Z79.899 Other long term (current) drug therapy; Z20.822 Contact with and (suspected) exposure to COVID-19
CPT/HCPCS: 36415; 36430; 70450; 70496; 71045; 76830; 80048; 80053; 80076; 81003; 82607; 82728; 82746; 83540; 83735; 83880; 84466; 84484; 85025; 85044; 85610; 85730; 86850; 86900; 86901; 87086; 87088; 93005; 96360; 96361; 99285; J1200; J2916; J3420; J7030; J7050; P9016; Q9967; U0003

== ENCOUNTER 2020-12-11 18:01 | Emergency (ER) | payer SELFPAY ==
--- OUTSIDE RECORDS SUMMARY | 2020-12-11 18:03 | XMS REPORT | Continuity of Care Document ---
:1980 Author Organization [facility] t Address 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 Allergies, Adverse Reactions, Alerts This patient has no known allergies or adverse reactions. Medications This patient has no known medications. Procedures This patient has no known procedures. Encounters Start End Encounter Admission Attending Care Care Encounter Source Date/Time Date/Time Type Type Clinicians Facility Department ID 2020-04-19 2020-04-19 Letter PAUL Rodriguez [id number] 00:00:00 00:00:00 (Out) Zuleyka CALLAHAN [id number] [facility] [id number] 2020-04-18 2020-04-18 Emergency HANNAH Severino [id number] 15:44:00 18:06:00 Augie Cruz [id number] [place] [id number] [place] [id number] 2020-04-18 2020-04-18 Orders Doctor MILLER [id number] 00:00:00 00:00:00 Only Unassigned, SINDY [id number] [place] [id number] 2019-07-07 2019-07-07 Emergency Maycol [facility] [id number] 17:24:11 19:54:00 Augie Cruz [id number] [place] [id number] [place] [id number] 2019-07-07 2019-07-07 Orders Doctor PAUL [id number] 00:00:00 00:00:00 Only Unassigned, SINDY [id number] [place] [id number] 2018-12-13 2018-12-13 [facility] [id number] 09:01:33 09:53:51 Visit Yarely Quigley RN ADMISSIONS [id number] [facility] [id number] MATERNAL [id number] & CHILD [address] [place] [address] Results This patient has no known results.
--- NOTE | 2020-12-11 20:02 | RAD REPORT ---
EXAM DESCRIPTION: RAD - Chest Pa And Lat (2 Views) - 12/11/2020 7:43 pm CLINICAL HISTORY: CHEST PAIN COMPARISON: Chest Single View dated 08/25/2020; Chest Single View dated 09/26/2017 FINDINGS: There are a few ill-defined opacities in the lung bases bilaterally. The heart size is wit hin normal limits.No acute osseous abnormality. No significant pleural effusions or pneumothorax. IMPRESSION: Scattered basilar ill-defined airspace disease concerning for multifocal pneumonia.
[2020-12-11 21:13] LABS: Basophils % 0.3 % (0-1.3); Hematocrit 35.8 % (36.0-45.0); Lymphocytes % 30.4 % (15.3-44.8); MPV 8.7 fL (7.6-11.3); RBC Red Blood Cell Count 4.77 M/uL (3.86-4.86)
[2020-12-11 21:29] LABS: Blood Morphology Comment NOT SEEN (NOT SEEN); White Blood Cell Scan OK (OK)
[2020-12-11 21:30] LABS: Platelet Estimate DECR
[2020-12-11] MEDS ORDERED: BENZONATATE 100 MG CAP PO ONE (22:04)
[2020-12-11] MEDS ORDERED: NA CHLORIDE 0.9% 1,000 ML ONE (22:05)
[2020-12-11 22:47] LABS: ALT/SGPT 43 U/L (12-78); AST/SGOT 37 U/L (15-37); Alkaline Phosphatase 50 U/L (45-117); BUN Blood Urea Nitrogen 9 mg/dL (7-18); Bicarbonate 28 mmol/L (21-32); Bilirubin Direct 0.1 mg/dL (0-0.2); Bilirubin Total 0.4 mg/dL (0.2-1.0); Ferritin 35.6 ng/mL (8-388); Glucose Level 95 mg/dL (74-106); Potassium 3.4 mmol/L (3.5-5.1); Protein, Total 8.8 g/dL (6.4-8.2); Sodium Level 134 mmol/L (136-145); Troponin I < 0.02 ng/mL (0.0-0.045)
[2020-12-11] MEDS ORDERED: METHYLPREDNISOLONE 125 MG INJ ONE (23:47)
--- NOTE | 2020-12-12 00:14 | EDPHYS ---
Physician Documentation [facility] Name: Anais Andujar Age: 40 yrs Sex: Female : 1980 Arrival Date: 12/11/2020 Time: 18:04 Bed 9 Private MD: ED Physician Burton Rosario HPI: 12/11 20:50 This 40 yrs old Female presents to ER via Ambulatory with complaints of cp Breathing Difficulty - covid+. 20:50 The patient has shortness of breath with light activity. Onset: The symptoms/episode cp began/occurred gradually, and became worse today. Duration: The symptoms are continuous, and are steadily getting worse. Associated signs and symptoms: Pertinent positives: chest pain, Pertinent negatives: productive cough, diaphoresis, fever. Severity of symptoms: in the emergency department the symptoms are unchanged despite home interventions. 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 - Social history:: Smoking status: Patient denies any tobacco usage or history of. ROS: 20:55 Constitutional: Positive for body aches, Negative for fever, poor PO intake. cp 20:55 Eyes: Negative for injury, pain, redness, and discharge. cp 20:55 ENT: Negative for ear pain, sore throat, difficulty swallowing, difficulty handling secretions. 20:55 Cardiovascular: Positive for chest pain, with cough, Negative for edema, palpitations. 20:55 Respiratory: Positive for cough, with no reported sputum, shortness of breath, on exertion. Negative for wheezing. 20:55 Abdomen/GI: Negative for abdominal pain, nausea, vomiting, and diarrhea. 20:55 Neuro: Negative for altered mental status, dizziness, headache, weakness. 20:55 All other systems are negative. Exam: 21:00 Constitutional: The patient appears in no acute distress, alert, awake, cp non-diaphoretic, non-toxic, well developed, well nourished, uncomfortable. 21:00 Head/Face: Normocephalic, atraumatic. cp 21:00 Eyes: Periorbital structures: appear normal, Conjunctiva: normal, no exudate, no injection, Sclera: no appreciated abnormality, Lids and lashes: appear normal, bilaterally. 21:00 ENT: External ear(s): are unremarkable, Nose: is normal, Posterior pharynx: Airway: no evidence of obstruction, patent. 21:00 Neck: ROM/movement: is normal, is supple, without pain, no range of motions limitations, no meningismus. 21:00 Chest/axilla: Inspection: normal. 21:00 Cardiovascular: Rate: normal, Rhythm: regular, Edema: is not appreciated, JVD: is not appreciated. 21:00 Respiratory: the patient does not display signs of respiratory distress, Respirations: labored breathing, is not present, intercostal retractions, are absent, shallow respirations, are not present, Breath sounds: bronchial sounds, that are mild, are heard diffusely, decreased breath sounds, are not appreciated, stridor, is not appreciated, wheezing: is not appreciated. 21:00 Abdomen/GI: Exam negative for discomfort, distension, guarding, Inspection: abdomen appears normal. 21:00 Neuro: Orientation: to person, place \T\ time. Mentation: is normal. 21:54 ECG was reviewed by the Attending Physician. Vital Signs: 18:59 BP 124 / 87; Pulse 95; Resp 20; Temp 98.5(TE); Pulse Ox 100% on R/A; Weight 67.13 kg kg (R); Height 5 ft. 5 in. (165.10 cm); Pain 10/10; 20:38 BP 120 / 73; Pulse 85; Temp 98.7; Pulse Ox 99% on R/A; dh4 21:07 Pulse 85; Resp 98 S; Temp 98.7(O); jp3 12/12 00:17 BP 106 / 63; Pulse 82; Resp 19; Temp 98.6; Pulse Ox 96% ; Pain 0/10; bs2 12/11 18:59 Body Mass Index 24.63 (67.13 kg, 165.10 cm) kg MDM: 12/11 20:14 Patient medically screened. cp 21:00 Differential diagnosis: Myocardial Infarction pneumonia, pulmonary edema, Pulmonary cp Embolism Sepsis. 12/12 00:10 Data reviewed: vital signs, nurses notes, lab test result(s), EKG, radiologic studies, cp CT scan, plain films. 00:10 Test interpretation: by ED physician or midlevel provider: ECG, plain radiologic cp studies. Counseling: I had a detailed discussion with the patient and/or guardian regarding: the historical points, exam findings, and any diagnostic results supporting the discharge/admit diagnosis, lab results, radiology results, to return to the emergency department if symptoms worsen or persist or if there are any questions or concerns that arise at home. Response to treatment: the patient's symptoms have markedly improved after treatment, patient is well hydrated. VSS. Patient appears non-toxic and no signs of respiratory distress. Will discharge to home for continued monitoring. 12/11 20:49 Order name: CBC with Diff cp 12/11 20:49 Order name: BMP; Complete Time: 22:56 cp 12/11 22:56 Interpretation: Normal except: NA 134; K 3.4. cp 12/11 20:49 Order name: Troponin I; Complete Time: 22:56 cp 12/11 20:49 Order name: LFT's; Complete Time: 22:56 cp 12/11 22:56 Interpretation: Normal except: TP 8.8; GLOB 4.8; A/G 0.8. cp 12/11 20:49 Order name: Ferritin; Complete Time: 22:56 cp 12/11 20:49 Order name: CRP; Complete Time: 22:56 cp 12/11 22:57 Interpretation: Abnormal: C-REACTIVE PROT 42.00. cp 12/11 19:10 Order name: XRAY Chest Pa And Lat (2 Views); Complete Time: 22:13 kg 12/11 22:13 Interpretation: Report reviewed. cp 12/11 20:49 Order name: EKG; Complete Time: 20:50 cp 12/11 20:49 Order name: CBC with Automated Diff; Complete Time: 22:13 EDMS 12/11 22:13 Interpretation: Normal except: WBC 3.30; HGB 11.7; HCT 35.8; MCV 75.1; MCH 24.6; PLT cp 147; RDW 17.2. 12/11 20:50 Order name: CT Chest For PE Angio cp 12/11 21:29 Order name: CBC Smear Scan; Complete Time: 22:13 EDMS 08/24 20:49 Order name: IV; Complete Time: 21:08 cp 12/11 20:49 Order name: EKG - Nurse/Tech; Complete Time: 21:27 cp EC/24 21:54 Rate is 84 beats/min. Rhythm is regular. [place] interval is normal. QRS interval is normal. cp QT interval is normal. T waves are Inverted in lead aVR. Interpreted by me. Reviewed by me. Administered Medications: 21:51 Drug: Tessalon Perle (benzonatate) 200 mg Route: PO; bs2 23:38 Follow up: Response: No adverse reaction kg 21:51 Drug: NS 0.9% 1000 ml Route: IV; Rate: 1 bolus; Site: right antecubital; bs2 12/12 00:19 Follow up: IV Status: Completed infusion bs2 12/11 23:38 Drug: SOLU-Medrol (methylPrednisoLONE) 80 mg Route: IVP; Site: right antecubital; kg 12/12 00:19 Follow up: Response: No adverse reaction bs2 Disposition: 07:09 Co-signature as Attending Physician, Burton Rosario MD. [email or web address] Disposition Summary: 12/12/20 00:13 Discharge Ordered Location: Home cp Problem: new cp Symptoms: have improved cp Condition: Stable cp Diagnosis - Other viral pneumonia cp - SARS-associated coronavirus as the cause of diseases classified elsewhere cp Followup: cp - With: Private Physician - When: 2 - 3 days - Reason: Recheck today's complaints Discharge Instructions: - Discharge Summary Sheet cp - Aspirin and Your Heart cp - COVID-19 cp - Things to Know about the COVID-19 Pandemic - [facility] cp - 10 Things You Can Do to Manage Your COVID-19 Symptoms at Home - [facility] cp - Frequently Asked Questions About COVID-19 Vaccination - [facility] cp - COVID-19: Quarantine vs. Isolation - [facility] cp - Prevent the Spread of COVID-19 if You Are Sick - [facility] cp Forms: - Medication Reconciliation Form cp - Thank You Letter cp - Antibiotic Education cp - Prescription Opioid Use cp Prescriptions: - albuterol sulfate 90 mcg/actuation Inhalation HFA aerosol inhaler - inhale 1 puff by INHALATION route every 4-6 hours; 1 Inhaler; Refills: 0, cp Product Selection Permitted - ivermectin 3 mg Oral tablet - take 4 tablet by ORAL route every other day; 8 tablet; Refills: 0, Product cp Selection Permitted - Tessalon Perles 100 mg Oral Capsule - take 2 capsule by ORAL route every 8 hours As needed; 30 capsule; Refills: 0, cp Product Selection Permitted - Zithromax Z-Paulo 250 mg Oral Tablet - take 1 tablet by ORAL route as directed for 5 days Day 1 - take two (2) tablets cp one time. Day 2, 3, 4 , 5 take one (1) tablet once daily.; 6 tablet; Refills: 0, Product Selection Permitted - Prednisone 20 mg Oral Tablet - take 2 tablets by ORAL route once daily for 5 days then take 1 tablet daily for cp 5 days; 15 tablet; Refills: 0, Product Selection Permitted Signatures: Dispatcher [employer] EDMS Munir Markham PA PA cp Burton Rosario MD MD [email or web address] Emilee Pink RN RN kg Ayanna Odonnell RN RN bs2 Corrections: (The following items were deleted from the chart) 12/11 19:06 19:03 PSHx: None; kg kg
--- NOTE | 2020-12-12 00:14 | ER ---
Nurse's Notes [facility] Name: Anais Andujar Age: 40 yrs Sex: Female : 1980 Arrival Date: 12/11/2020 Time: 18:04 Bed 9 Private MD: Diagnosis: Other viral pneumonia;SARS-associated coronavirus as the cause of diseases classified elsewhere Presentation: 12/11 18:59 Chief complaint: Patient states: SOB, Cough, Nausea, Fever x 7 days. Coronavirus kg screen: Client denies travel out of the [place] in the last 14 days. At this time, unable to obtain information related to travel outside the [place] Client presents with at least one sign or symptom that may indicate coronavirus-19. Standard/surgical mask placed on the client. Provider contacted for isolation considerations. Client reports previous positive COVID test result. Date of collection: December 10, 2020. Ebola Screen: Patient negative for fever greater than or equal to 101.5 degrees Fahrenheit, and additional compatible Ebola Virus Disease symptoms Patient denies exposure to infectious person. Patient denies travel to an Ebola-affected area in the 21 days before illness onset. Initial Sepsis Screen: Does the patient meet any 2 criteria? No. Patient's initial sepsis screen is negative. Does the patient have a suspected source of infection? No. Patient's initial sepsis screen is negative. Risk Assessment: Do you want to hurt yourself or someone else? Patient reports no desire to harm self or others. Onset of symptoms was December 04, 2020. 18:59 Method Of Arrival: Ambulatory kg 18:59 Acuity: RUDOLPH 4 kg Triage Assessment: 19:05 General: Appears in no apparent distress. Behavior is calm, cooperative, appropriate kg for age, quiet. Pain: Complains of pain in mid-sternal area. Respiratory: Reports shortness of breath at rest on exertion since 7 days cough that is productive, Onset: The symptoms/episode began/occurred gradually, the patient has mild shortness of breath. 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 - Social history:: Smoking status: Patient denies any tobacco usage or history of. Screenin:07 Abuse screen: Denies threats or abuse. Denies injuries from another. Nutritional kg screening: No deficits noted. Tuberculosis screening: No symptoms or risk factors identified. Fall Risk None identified. Assessment: 21:52 General: Appears in no apparent distress. uncomfortable, well groomed, well developed, bs2 well nourished, Behavior is calm, cooperative, appropriate for age. Neuro: No deficits noted. Cardiovascular: Rhythm is regular. Respiratory: Airway is patent Respiratory effort is even, unlabored, Breath sounds are diminished bilaterally. Parent/caregiver reports the patient having shortness of breath at rest cough that is non-productive, pain with cough. GI: Reports nausea. : No signs and/or symptoms were reported regarding the genitourinary system. EENT: No signs and/or symptoms were reported regarding the EENT system. Derm: No signs and/or symptoms reported regarding the dermatologic system. Musculoskeletal: No signs and/or symptoms reported regarding the musculoskeletal system. Vital Signs: 18:59 BP 124 / 87; Pulse 95; Resp 20; Temp 98.5(TE); Pulse Ox 100% on R/A; Weight 67.13 kg kg (R); Height 5 ft. 5 in. (165.10 cm); Pain 10/10; 20:38 BP 120 / 73; Pulse 85; Temp 98.7; Pulse Ox 99% on R/A; dh4 21:07 Pulse 85; Resp 98 S; Temp 98.7(O); jp3 12/12 00:17 BP 106 / 63; Pulse 82; Resp 19; Temp 98.6; Pulse Ox 96% ; Pain 0/10; bs2 12/11 18:59 Body Mass Index 24.63 (67.13 kg, 165.10 cm) kg ED Course: 12/11 18:04 Patient arrived in ED. as 19:03 Triage completed. kg 19:05 Arm band placed on right wrist. kg 19:07 Patient has correct armband on for positive identification. kg 19:44 XRAY Chest Pa And Lat (2 Views) In Process Unspecified. EDMS 20:11 Munir Markham PA is PHCP. cp 20:11 Burton Rosario MD is Attending Physician. cp 21:07 Bed in low position. Call light in reach. Side rails up X 1. Warm blanket given. jp3 21:07 Initial lab(s) drawn, sent to lab. Inserted saline lock: 20 gauge in right antecubital jp3 area, using aseptic technique. Blood collected. 21:20 Ayanna Odonnell, RN is Primary Nurse. bs2 21:26 CRP Sent. bb 21:27 LFT's Sent. bb 21:27 Ferritin Sent. bb 21:27 Troponin I Sent. bb 21:27 BMP Sent. bb 21:27 CBC with Diff Sent. bb 21:52 Pulse ox on. NIBP on. bs2 23:23 CT Chest For PE Angio In Process Unspecified. EDMS 12/12 00:17 IV discontinued, intact, bleeding controlled, No redness/swelling at site. bs2 00:17 No provider procedures requiring assistance completed. bs2 Administered Medications: 12/11 21:51 Drug: Tessalon Perle (benzonatate) 200 mg Route: PO; bs2 23:38 Follow up: Response: No adverse reaction kg 21:51 Drug: NS 0.9% 1000 ml Route: IV; Rate: 1 bolus; Site: right antecubital; bs2 12/12 00:19 Follow up: IV Status: Completed infusion bs2 12/11 23:38 Drug: SOLU-Medrol (methylPrednisoLONE) 80 mg Route: IVP; Site: right antecubital; kg 12/12 00:19 Follow up: Response: No adverse reaction bs2 Outcome: 00:13 Discharge ordered by . cp 00:17 Discharged to home ambulatory. bs2 00:17 Condition: improved 00:17 Discharge instructions given to patient, Instructed on discharge instructions, follow up and referral plans. medication usage, Demonstrated understanding of instructions, follow-up care, medications, Prescriptions given X 5 00:38 Patient left the ED. bs2 Signatures: Dispatcher [employer] EDMS Kimberley Espana Brenda, RN RN bb Munir Markham PA PA cp Damian Rico jp3 Joey Maradiaga 4 Emilee Pink RN RN kg Ayanna Odonnell, RN RN bs2 Corrections: (The following items were deleted from the chart) 08/24 19:06 19:03 PSHx: None; kg kg
[2020-12-12 00:49] VITALS: BP 106/63; TEMP 98.6; O2SAT 96
--- NOTE | 2020-12-12 10:51 | RAD REPORT ---
EXAM DESCRIPTION: CT - Chest For Pe Angio - 12/12/2020 6:27 am CLINICAL HISTORY: Chest pain;SOB. COMPARISON: CTA of the chest, abdomen, and pelvis from September 26, 2017. TECHNIQUE: CTA of the chest was performed following intravenous administration of iodinated contrast . Axial soft tissue and lung window, and coronal and sagittal soft tissue window reconstructions were created and sent to PACS. 3D postprocessing was performed on an independent workstation, with images sent to PACS for subsequen t review. This exam was performed according to our departmental dose-optimization program, which includes autom ated exposure control, adjustment of the mA and/or kV according to patient size and/or use of iterati ve reconstruction technique. FINDINGS: Vascular: The pulmonary arteries are well-opacified to the segmental level. No CT evidence of acute pulmonary thromboembolism. No evidence of aortic aneurysm or dissection. Lungs and pleura: Small to moderate regions of groundglass opacification and interstitial thickening throughout the lungs, with a peripheral predominance, most prominent in the right lower lobe. No pleu ral effusion. No pneumothorax. Mediastinum and neck: Mild right hilar lymphadenopathy. Unremarkable appearance of the thyroid gland. Cardiac: No cardiomegaly or pericardial effusion. Abdomen: No significant upper abdominal abnormality identified. Musculoskeletal: No concerning osseous abnormality. IMPRESSION: 1. No CTA evidence of acute pulmonary thromboembolism. 2. Small to moderate regions of groundglass opacification and interstitial thickening throughout th e lungs, with a peripheral predominance, most prominent in the right lower lobe. Correlate for infect ious/inflammatory etiology. 3. Mild right hilar lymphadenopathy, likely reactive. Electronically signed by: Tiki Roe MD 12/11/2020 11:37 PM CDT Due to temporary technical issues with the PACS/Fluency reporting system, reports are being signed by the in house radiologist without review as a courtesy to ensure prompt reporting. The interpreting r adiologist is fully responsible for the content of the report.
--- NOTE | 2020-12-12 15:38 | EKG ---
Test Date: 2020-12-11 Test Time: 21:46:20 Field Installation Technician: FLORENCIO MEASUREMENT RESULTS: Intervals: Rate: 84 MD: 126 QRSD: 82 QT: 362 QTc: 427 [place]: P: 42 MD: 126 QRS: 88 T: 62 INTERPRETIVE STATEMENTS: Normal sinus rhythm Normal ECG Compared to ECG 08/25/2020 12:44:22 No significant changes Electronically Signed On 12-12-20 15:36:56 CDT by Steve Gipson
== END 2020-12-12 00:38 | disposition home or self-care (01) ==
LOC: ER 18:01
DX: U07.1 COVID-19 (principal); J12.89 Other viral pneumonia; Z88.5 Allergy status to narcotic agent
CPT/HCPCS: 36415; 71046; 71275; 80048; 80076; 82728; 84484; 85025; 86140; 93005; 96361; 96374; 99284; J2930; J7030; Q9967

== ENCOUNTER 2023-01-05 05:52 | Emergency (ER) | payer SELFPAY ==
--- OUTSIDE RECORDS SUMMARY | 2023-01-05 05:56 | XMS REPORT | Continuity of Care Document ---
:1980 Author Organization [facility] t Address [address] [place] [address] Care Team Providers Name Role Phone FRANCIS RICHEY Primary Care Physician Unavailable MAIRA SMITH Attending Clinician Unavailable Maira Smith DO Attending Clinician Zuleyka Rodriguez RN Attending Clinician Unavailable Augie Wilks Attending Clinician Doctor Unassigned, [place] Attending Clinician Unavailable Yarely Abdi Attending Clinician Rani Lilly Attending Clinician Payers Payer Name Policy Type Policy Number Effective Date Expiration Date S [facility] [id number] 2018 [place] 00:00:00 MEDICAID [place] PENDING 2022 PENDING 00:00:00 Problems Condition Condition Condition Status Onset Resolution Last Treating Co mments Source Name Details Category Date Date Treatment Clinician Date Encounter Encounter Disease Active Uni vers for for 05-23 ity of initial initial 00:00: [place] prescripti prescripti 00 Me dical on of on of Branch contracept contracept abhilash abhilash Encounter Encounter Disease Active Uni vers for for 05-23 ity of initial initial 00:00: [place] prescripti prescripti 00 Me dical on of on of Branch contracept contracept abhilash abhilash BV BV Disease Active Univers (bacterial (bacterial 5-16 it y of vaginosis) [place]inosis[place] Pain Pain Disease Active Univers pelvic pelvic 5-16 ity of 00:00: [place] 00 Medical Branch BMI BMI Disease Active 2014-04 Univers 29.0-29.9, 29.0-29.9, 2-07 it y of adult adult 00:00: [place] 00 Medical Branch BMI BMI Disease Active 2014-04 Univers 29.0-29.9, 29.0-29.9, 2-07 it y of adult adult 00:00: [place] 00 Medical Branch BMI BMI Disease Active 2014-04 Univers 29.0-29.9, 29.0-29.9, 2-07 it y of adult adult 00:00: [place] 00 Medical Branch Breast Breast Disease Active 2014-04 Overview: Univer s lump in lump in 2- Formattin ity o f upper upper 00:00: g of this [facility] 00 note Medical quadrant quadrant might be Bran ch different from the original. diag mmgNo evid of malignanc yBreast usgNo evidence of malignanc y repeat in 1 yearBilat eral mmg neg and usg neg, repeat screening mmg and usg in 1 year Breast Breast Disease Active 2014-04 Univers pain pain 2-03 ity of 00:00: [place] 00 Medical Branch Breast Breast Disease Active 2014-04 Overview: Univer s lump in lump in 2-03 diag ity of upper upper 00:00: mmgNo [facility] 00 evid of Medical quadrant quadrant malignanc Bra [facility] yBreast usgNo evidence of malignanc y repeat in 1 yearBilat eral mmg neg and usg neg, repeat screening mmg and usg in 1 year Anemia Anemia Disease Active 2013-04 Overview: Univer s 0-07 Formattin ity of 00:00: g of this [place] 00 note Medical might be Branch different from the original. ICD10 Diagnosis Term Windows Admin Utility History of History of Disease Active U nivers abnormal abnormal 01-17 ity of cervical cervical 00:00: [place] Pap smear Pap smear 00 [facility] Branch Contracept Contracept Disease Active Overview : Univers car car 01-17 Formattin ity of management management 00:00: g of this note Medical might be Branch different from the original. 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 00:[place]: [place] Allergies, Adverse Reactions, Alerts Allergy Allergy Status Severity Reaction(s) Onset Inactive Treating Comm ents Source Name Type Date Date Clinician MORPHINE DRUG Active Other-Cmnt Univ ers INGREDI 07-06 ity of 00:: Medical [place] Morphine Propensi Active Other - See U nivers ty to comments 07-06 ity of adverse 00:00: [place] reaction 00 Medical s Branch NO KNOWN Drug Active Univers ALLERGIE Class ity of S [facility] Social History Social Habit Start Date Stop Date Quantity Comments Source Exposure to 2022-02-08 2022 Not sure [facility] SARS-CoV-2 00:00:00 13:39:00 [facility] [place] (event) [place] Alcohol intake 2022 2022 0 /d [facility] 00:00:00 00:00:00 [facility] Tobacco use and 2012-12-01 2012-12-01 Smokeless tobacco Un iversity of exposure 00:00:00 00:00:00 non-user [facility] Sex Ass[birth year] At [birth year] Universit y of 00:00:00 00:00:00 [facility] Smoking Status Start Date Stop Date Source Never smoked tobacco [facility] [place] Medications Ordered Filled Start Stop Current Ordering Indication Dosage Frequency Signature Comments Components Source Medication Medication Date Date Medication? Clinician (SIG) Name Name benzonatate 2019-04 Yes [id number] 100mg Take 1 Univers 100 mg 2-30 capsule by ity of capsule 00:00: mouth 3 [place] 00 (three) Medical times Branch daily as needed for Cough. albuterol 2019-04 Yes [id number] 2{puff} Inhale 2 Univers 90 2-30 Puffs ity of mcg/actuati 00:00: every 4 [place] as on inhaler 00 (four) Medical hours as Branch needed for Wheezing or Shortness of Breath. dextrometho 2019-04 Yes [id number] 10mL Take 10 mL Univers rphan-guaif 2-30 by mouth ity of enesin 00:00: every 6 [place] 10-100 mg/5 00 (six) Medical mL solution hours as Bran ch needed for Cough. benzonatate 2019-04 Yes [id number] 100mg Take 1 Univers 100 mg 2-30 capsule by ity of capsule 00:00: mouth 3 (three) Medical times Branch daily as needed for Cough. albuterol 2019-04 Yes [id number] 2{puff} Inhale 2 Univers 90 2-30 Puffs ity of mcg/actuati 00:00: every 4 [place] as on inhaler 00 (four) Medical hours as Branch needed for Wheezing or Shortness of Breath. dextrometho 2019-04 Yes [id number] 10mL Take 10 mL Univers rphan-guaif 2-30 by mouth ity of enesin 00:00: every 6 [place] 10-100 mg/5 00 (six) Medical mL solution hours as Bran ch needed for Cough. benzonatate 2019-04 Yes [id number] 100mg Take 1 Univers 100 mg 2-30 capsule by ity of capsule 00:00: mouth 3 (three) Medical times Branch daily as needed for Cough. albuterol 2019-04 Yes [id number] 2{puff} Inhale 2 Univers 90 2-30 Puffs ity of mcg/actuati 00:00: every 4 [place] as on inhaler 00 (four) Medical hours as Branch needed for Wheezing or Shortness of Breath. dextrometho 2019-04 Yes [id number] 10mL Take 10 mL Univers rphan-guaif 2-30 by mouth ity of enesin 00:00: every 6 [place] 10-100 mg/5 00 (six) Medical mL solution hours as Bran ch needed for Cough. dextrometho 2019-04 2020- No [id number] 10mL Take 10 mL Univers rphan-guaif 2-30 12-30 by mouth ity of enesin 00:00: 00:00 every 6 [place] 10-100 mg/5 00 :00 (six) Medical mL solution hours as Bran ch needed for Cough. cephALEXin 2020- No [id number] 500mg Take 1 Univers 500 mg 07-06 capsule by ity of capsule 00:00: 04:59 mouth 4 [place] 00 :00 (four) Medical times Branch daily for 7 days. ferrous Yes Take by Univers sulfate 8-26 mouth. ity of (IRON ORAL) 14:18: [address] ferrous Yes Take by Univers sulfate 8-26 mouth. ity of (IRON ORAL) 14:18: [address] ferrous Yes Take by Univers sulfate 8-26 mouth. ity of (IRON ORAL) 14:18: [address] ferrous Yes Take by Univers sulfate 8-26 mouth. ity of (IRON ORAL) 14:18: [address] ferrous Yes Take by Univers sulfate 8-26 mouth. ity of (IRON ORAL) 14:18: [address] ferrous Yes Take by Univers sulfate 8-26 mouth. ity of (IRON ORAL) 14:18: [address] ferrous Yes Take by Univers sulfate 8-26 mouth. ity of (IRON ORAL) 14:18: [address] ferrous Yes Take by Univers sulfate 8-26 mouth. ity of (IRON ORAL) 09:18: [address] ketorolac 2019- No 30mg 30 mg, Unive rs (TORADOL) 11-25 Slow IV ity of injection 17:15: 16:09 [place], [place] 30 mg 00 :00 ONCE, 1 Medical dose, [facility] 11/25/18 at 1215, DELANO
Fa culty member approving Restricted medication : Rani VILLALBA diphenhydrA 2019- No 25mg 25 mg, Uni vers MINE 11-25 Slow IV ity of (BENADRYL) 17:15: 16:10 [place], [place] injection 00 :00 ONCE, 1 Medical 25 mg dose, [facility] 11/25/18 at 1215, STAT metoclopram 2018- No 10mg 10 mg, Uni vers chuy HCl 11-25 Slow IV ity of (REGLAN) 17:15: 16:08 [place], [place] injection 00 :00 ONCE, 1 Medical 10 mg dose, [facility] Branch 11/25/18 at 1215, DELANO NaCl 0.9% 2019- No 1000mL at 999 Uni vers (NS) bolus 11-25 mL/hr, ity of infusion 16:45: 18:12 1,000 mL, [place] as 1,000 mL 00 :00 IV Medical Infusion, [place] ONCE, 1 dose, [facility] 11/25/18 at 1145, STAT norgestimat 2017- Yes [id number] 1{tbl} Take 1 Univers e-ethinyl 9-13 tablet by ity o f estradiol 00:00: mouth [place] (ORTHO 00 daily. [place] [address],) 0.18/0.215/ 0.25 mg-35 mcg (28) tablet norgestimat 2018- Yes [id number] 1{tbl} Take 1 Univers e-ethinyl 9-13 tablet by ity o f estradiol 00:00: mouth [place] (ORTHO 00 daily. [facility] 28,) 0.18/0.215/ 0.25 mg-35 mcg (28) tablet norgestimat 2019- No [id number] 1{tbl} Take 1 Univers e-ethinyl 9-13 08-26 tablet by ity of estradiol 00:00: 00:00 mouth [place] (ORTHO 00 :00 daily. [place] [address],) 0.18/0.215/ 0.25 mg-35 mcg (28) tablet norgestimat 2019- No [id number] 1{tbl} Take 1 Univers e-ethinyl 9-13 08-26 tablet by ity of estradiol 00:00: 00:00 mouth [place] (ORTHO 00 :00 daily. [place] [address],) 0.18/0.215/ 0.25 mg-35 mcg (28) tablet Immunizations Ordered Filled Immunization Date Status Comments [facility] e Immunization Name Name TD 2011-07-25 Completed [facility] 00:00:00 [facility] TD 2011-07-25 Completed [facility] 00:00:00 [facility] TD 2011-07-25 Completed University of 00:00:00 [place] [facility] TDAP 2011-07-25 Completed University of 00:00:00 [place] [facility] Tdap 2011-07-25 Completed University of 00:00:00 [place] [facility] Tdap 2011-07-25 Completed University of 00:00:00 [place] [facility] Tdap 2011-07-25 Completed University of 00:00:00 [place] [facility] Tdap 2011-07-25 Completed University of 00:00:00 [place] [facility] Tdap 2011-07-25 Completed University of 00:00:00 [place] [facility] Tdap 2011-07-25 Completed University of 00:00:00 [facility] Vital Signs Vital Name Observation Time Observation Value Comments Source Systolic blood 2022 18:40:00 138 mm[Hg] Univer sity of pressure [facility] Diastolic blood 2022 18:40:00 98 mm[Hg] Unive rsity of pressure [facility] Heart rate 2022 18:40:00 95 /[facility] Body temperature 2022 18:40:00 37.72 Larissa [facility] Respiratory rate 2022 18:40:00 20 /min [facility] Body height 2022 18:40:00 165.1 cm [facility] Body weight 2022 18:40:00 65.772 kg [facility] BMI 2022 18:40:00 24.13 kg/m2 [facility] Oxygen saturation in 2022 18:40:00 100 /min University Arterial blood by [facility] Pulse oximetry Branch Systolic blood 2020-04-18 21:43:00 112 mm[Hg] Univer sity of pressure [facility] Diastolic blood 2020-04-18 21:43:00 76 mm[Hg] Unive rsity of pressure [facility] Heart rate 2020-04-18 21:43:00 72 /min Universi ty [facility] [place] [facility] Body temperature 2020-04-18 21:43:00 37.56 [facility] rate 2020-04-18 21:43:00 16 /min Univ ersity of [place] [facility] Body weight 2020-04-18 21:43:00 65.772 kg Universi ty of [place] [facility] BMI 2020-04-18 21:43:00 24.89 kg/m2 Universi ty of [place] [facility] Oxygen saturation in 2020-04-18 21:43:00 100 /min University of Arterial blood by [place] [facility]i delia Pulse oximetry Branch Systolic blood 2020-04-18 21:43:00 112 mm[Hg] Univer sity of pressure [place] [facility] Diastolic blood 2020-04-18 21:43:00 76 mm[Hg] Unive rsity of pressure [place] [facility] Heart rate 2020-04-18 21:43:00 72 /min Universi ty of [place] [facility] Body temperature 2020-04-18 21:43:00 37.56 Larissa Univ ersity of [place] [facility] Respiratory rate 2020-04-18 21:43:00 16 /min Univ ersity of [place] [facility] Body weight 2020-04-18 21:43:00 65.772 kg Universi ty [facility] [place] [facility] BMI 2020-04-18 21:43:00 24.89 kg/m2 Universi ty [facility] [place] [facility] Oxygen saturation in 2020-04-18 21:43:00 100 /min University of Arterial blood by [facility] [place] delia Pulse oximetry Branch Systolic blood 2019-07-07 22:22:00 126 mm[Hg] Univer sity of pressure [place] [facility] Diastolic blood 2019-07-07 22:22:00 72 mm[Hg] Unive rsity of pressure [place] [facility] Heart rate 2019-07-07 22:22:00 88 /min Universi ty of [place] [facility] Body temperature 2019-07-07 22:22:00 37.28 Larissa Univ ersity of [place] [facility] Respiratory rate 2019-07-07 22:22:00 18 /min Univ ersity of [place] [facility] Body weight 2019-07-07 22:22:00 65.998 kg Universi ty of [place] [facility] BMI 2019-07-07 22:22:00 24.98 kg/m2 Universi ty of [place] [facility] Oxygen saturation in 2019-07-07 22:22:00 100 /min University of Arterial blood by [place] Medi delia Pulse oximetry Branch Systolic blood 2019-07-07 22:22:00 126 mm[Hg] Univer sity of pressure [place] [facility] Diastolic blood 2019-07-07 22:22:00 72 mm[Hg] Unive rsity of pressure [place] [facility] Heart rate 2019-07-07 22:22:00 88 /min Universi ty of [place] [facility] Body temperature 2019-07-07 22:22:00 37.28 Larissa Univ ersity of [place] [facility] Respiratory rate 2019-07-07 22:22:00 18 /min Univ ersity of [place] [facility] Body weight 2019-07-07 22:22:00 65.998 kg Universi ty of [place] [facility] BMI 2019-07-07 22:22:00 24.98 kg/m2 Universi ty of [place] [facility] Oxygen saturation in 2019-07-07 22:22:00 100 /min University Arterial blood by [facility] Pulse oximetry Branch Systolic blood 2018-12-13 14:12:00 118 mm[Hg] Univer sity of pressure [place] [facility] Diastolic blood 2018-12-13 14:12:00 70 mm[Hg] Unive rsity of pressure [place] [facility] Heart rate 2018-12-13 14:12:00 66 /min Universi ty of [place] [facility] Body temperature 2018-12-13 14:12:00 36.78 Larissa Univ ersity of [place] [facility] Respiratory rate 2018-12-13 14:12:00 18 /min Univ ersity of [place] [facility] Body height 2018-12-13 14:12:00 162.6 cm Universi ty of [place] [facility] Body weight 2018-12-13 14:12:00 65.375 kg Universi ty of [place] [facility] BMI 2018-12-13 14:12:00 24.74 kg/m2 Universi ty of [place] [facility] Systolic blood 2018-12-13 14:12:00 118 mm[Hg] Univer sity of pressure [place] [facility] Diastolic blood 2018-12-13 14:12:00 70 mm[Hg] Unive rsity of pressure [place] [facility] Heart rate 2018-12-13 14:12:00 66 /min Universi ty of [place] [facility] Body temperature 2018-12-13 14:12:00 36.78 Larissa Univ ersity of [place] [facility] Respiratory rate 2018-12-13 14:12:00 18 /min Univ ersity of [place] [facility] Body height 2018-12-13 14:12:00 162.6 cm Universi ty of [place] [facility] Body weight 2018-12-13 14:12:00 65.375 kg [facility] BMI 2018-12-13 14:12:00 24.74 kg/m2 [facility] Systolic blood 2018-11-25 17:50:00 111 mm[Hg] Univer sity of pressure [facility] Diastolic blood 2018-11-25 17:50:00 75 mm[Hg] Unive rsity of pressure [facility] Heart rate 2018-11-25 17:50:00 67 /min [facility] Respiratory rate 2018-11-25 17:50:00 16 /min [facility] Oxygen saturation in 2018-11-25 17:50:00 100 /min [facility] Arterial blood by [facility] Pulse oximetry Branch Body temperature 2018-11-25 15:12:00 36.83 Larissa [facility] Body weight 2018-11-25 15:12:00 65.59 kg [facility] BMI 2018-11-25 15:12:00 24.82 kg/m2 [facility] Procedures Procedure Date / Time Performing Clinician Source Performed POCT TEST 2022 18:47:00 Maira Smith [facility] COVID-19 (ID NOW RAPID 2022 18:47:00 [facility] Branch CONSENT/REFUSAL FOR 2022 18:36:59 Doctor Unassigned, No Un [facility]ity of [place] DIAGNOSIS AND TREATMENT Name Medical Branch XR CHEST 1 VW 2020-04-18 22:47:03 Augie Severino [facility] [place] NOTICE OF PRIVACY 2020-04-18 21:13:52 Doctor Unassigned, No Univ [facility] PRACTICES Name Medical Branch CONSENT/REFUSAL FOR 2020-04-18 21:13:38 Doctor Unassigned, No [facility] [place] DIAGNOSIS AND TREATMENT Name Medical Branch URINALYSIS 2019-07-07 23:11:00 Augie Severino [facility] [place] ADC,CLC OR LCC ONLY - 2019-07-07 22:34:00 Augie Severino [facility] INFLUENZA A & B DIRECT Medical B ranch ANTIGEN NOTICE OF PRIVACY 2019-07-07 22:08:34 Doctor Unassigned, No [facility] PRACTICES Name Medical Branch CONSENT/REFUSAL FOR 2019-07-07 22:08:24 Doctor Unassigned, No [facility] DIAGNOSIS AND TREATMENT Name Medical [place] ASSIGNMENT OF BENEFITS 2018-12-13 13:51:31 Doctor Unassigned, No [facility] Name Medical Branch LIPASE 2018-11-25 16:02:00 Rani Villalba Marissa [facility] COMP. METABOLIC PANEL 2018-11-25 16:02:00 Rani Villalba [facility] ([id number]) [facility] CBC WITH DIFFERENTIAL 2018-11-25 16:02:00 Rani Villalba [facility] URINALYSIS 2018-11-25 15:58:00 Rani Villalba Marissa [facility] POCT TEST 2018-11-25 15:47:00 Rani Villalba [facility] Encounters Start End Encounter Admission Attending Care Care Encounter Source Date/Time Date/Time Type Type Clinicians Facility Department ID 2021-02-16 Emergency [facility] [id number] Univers 13:55:10 ity [facility] [place] [facility] 2021-02-14 Emergency [facility] [id number] Univers 15:14:06 ity [facility] [place] [facility] 2022 2022 Emergency X [facility] ERT [id number] Univers 13:48:00 14:35:00 MAIRA [facility] 2022 2022 [facility] [id number] Univers 13:48:00 14:35:00 Maira GRIGSBY [id number] ity [facility] [id number] [facility] [id number] [facility] 084 Branch 2020-04-19 2020-04-19 Letter PAUL Rodriguez [id number] 00:00:00 00:00:00 (Out) Zuleyka CALLAHAN [id number] [facility] [id number] [id number] [facility] 2020-04-19 2020-04-19 Letter PAUL Rodriguez [id number] Univers 00:00:00 00:00:00 (Out) Zuleyka Tian SINDY [id number] it y of HOSPITAL 4.2.7.2.686 [place] as [id number] [facility] 019 [place] 2020-04-18 2020-04-18 Emergency [place], [facility] 1.2.840.114 [id number] 15:44:00 18:06:00 Augie B [place] [id number] [place] [id number] [place] [id number] [facility] 2020-04-18 2020-04-18 Emergency [place], [facility] 1.2.840.114 [id number] Univers 15:44:00 18:06:00 Augie B [place] [id number] i ty of [place] 4.2.7.2.686 [facility] [id number] [address] 2020-04-18 2020-04-18 Orders Doctor MILLER 1.2.840.114 [id number] 00:00:00 00:00:00 Only Unassigned, SINDY [id number] [place] [facility] 4.2.7.2.686 [id number] [id number] 2020-04-18 2020-04-18 Orders Doctor MILLER 1.2.840.114 [id number] Univers 00:00:00 00:00:00 Only Unassigned, SINDY [id number] ity of [place] [facility] 4.2.7.2.686 [place] as [id number] [address] 2019-07-07 2019-07-07 Emergency [place], [facility] 1.2.840.114 [id number] 17:24:11 19:54:00 Augie B [place] [id number] [place] 4.2.7.2.686 [place] [id number] [facility] 2019-07-07 2019-07-07 Emergency [place], [facility] 1.2.840.114 [id number] Univers 17:24:11 19:54:00 Augie B [place] [id number] i ty of [place] 4.2.7.2.686 [facility] [id number] [address] 2019-07-07 2019-07-07 Orders Doctor PAUL 1.2.840.114 [id number] 00:00:00 00:00:00 Only Unassigned, SINDY [id number] [place] [facility] 4.2.7.2.686 [id number] [id number] 2019-07-07 2019-07-07 Orders Doctor PAUL 1.2.840.114 [id number] Univers 00:00:00 00:00:00 Only Unassigned, SINDY [id number] ity of [place] [facility] 4.2.7.2.686 [place] as [id number] [address] 2018-12-13 2018-12-13 Office Thad [facility] [id number] 09:01:33 09:53:51 Visit Yarely Quigley NEW BUSINESS CLERK [id number] REGIONAL 4.2.7.2.686 MATERNAL [id number] & CHILD 107 [facility] 2018-12-13 2018-12-13 Office Thad [facility] [id number] Univers 09:01:33 09:53:51 Visit Yarely Quigley NEW BUSINESS CLERK [id number] [facility] 4.2.7.2.686 [place] as MATERNAL [id number] Med ical & CHILD [address] [place] [address] 2018-12-13 2018-12-13 Orders Doctor PAUL 1.2.840.114 [id number] Univers 00:00:00 00:00:00 Only Unassigned, SINDY [id number] ity of [place] [facility] 4.2.7.2.686 [place] as [id number] [address] 2018-11-25 2018-11-25 Emergency Rani Villalba [facility] 1.2.840.114 [id number] Univers 10:16:11 13:20:00 Marissa Grigsby 350.1.13.10 i ty [facility] [id number] [facility] [id number] [address] Results Test Description Test Time Test Comments Results Result Comments Source POCT TEST 2022 18:47:00 Test Item Value Reference Range Interpretation Comme nts POCT PREG (test code = 1605) negative On board controls acceptable with C Line (test code = 3574) present POCT PREG LOT # (test code = 3575) [id number] POCT PREG TEST DATE (test code = 3576) 06-18-2023 Lab Interpretation (test code = 15206-5) [facility] [id number] 23:23:28No evidence of acute cardiopulmonary disease. Preliminary Report Dictated by Resident: Maryse Mckeon MD., have reviewed this study and agree with theabove report.EXAM: XR CHEST 1 04/18/2020 4:39 PM HISTORY: 40 years-old Female with cough, fever, covid exposure COMPARISON: none TECHNIQUE: AP view of the chest. FINDINGS: Hypoventilated lungs. The lungs are clear. There is no foca l consolidation,pleural effusion or pneumothorax. The cardiomediastinal silhouette is within normal limits. ?No acute osseousabnormalities. [facility], Radiant Results Inft User - 04/18/2020 5:24 PM CSTEXAM:XR CHEST 1 04/18/2020 4:39 PMHISTORY: 40 years-old Female with cough, fever, covid exposure COMPAR DAVE: noneTECHNIQUE: AP view of the chest.FINDINGS:Hypoventilated lungs. The lungs are clear. There is no focal consolidation,pleural effusion or pneumothorax.The cardiomediastinal silhouette is withinnormal limits. No acute osseousabnormalities.IMPRESSIONNo evidence of acute cardiopulmonary disease.P reliminary Report Dictated by Resident: Maryse Carmona MD., have reviewed this study and agree with theabove report.[facility] 23:57:00 Test Item Value Reference Range Interpretation Comments APPEARANCE (test code = Hazy Clear A [id number]) COLOR (test code = Yellow Yellow [id number]) PH (test code = 4.8-8.0 5806905517) SP GRAVITY (test code = 1.003-1.030 8527452560) GLU U QUAL (test code = Normal Normal [id number]) BLOOD (test code = Negative Negative 5580323170) KETONES (test code = Negative Negative 9015717976) PROTEIN (test code = Negative Negative 2887-8) UROBILIN (test code = Normal Normal 3345382602) BILIRUBIN (test code = Negative Negative 1026373236) NITRITE (test code = Negative Negative 1987249081) LEUK EWA (test code = 500/uL Negative A 7346697200) RBC/HPF (test code = See_Comment [Autom ated message] 0284876582) The system [employer] generated this result transmitted ref erence range: 0 - 3 HP F. The reference range was not used to int erpret this result as normal/abnormal . WBC/HPF (test code = See_Comment H [Autom ated message] 2781302297) The system [employer] generated this result transmitted ref erence range: 0 - 5 HP F. The reference range was not used to int erpret this result as normal/abnormal . BACTERIA (test code = Moderate Negative A 9187447062) MUCOUS (test code = Marked Negative LPF A 2549305326) SQ EPITH (test code = HPF 1634832754) HYAL CAST (test code = See_Comment [Aut omated message] 0223811123) The system [employer] generated this result transmitted ref erence range: <=2 LPF. The reference range was not used to int erpret this result as normal/abnormal . TRANS EPI (test code = <1 See_Comment [Aut omated message] 1939129966) The system [employer] generated this result transmitted ref erence range: <=1 HPF. The reference range was not used to int erpret this result as normal/abnormal . Lab Interpretation (test Abnormal code = 58660-7) [facility] OR [facility] ONLY - INFLUENZA A & B DIRECT [id number] 22:58:00 Test Item Value Reference Range Interpretation Comments Influenza A (test code = 16987-8) Negative Negative Influenza B (test code = 25093-7) Negative Negative Lab Interpretation (test code = Normal 72746-5) [facility] WITH [id number] 17:00:00 Test Item Value Reference Range Interpretation Comments WBC (test code = See_Comment L [Automated 6690-2) message] The sy stem which generated this result transmitted reference range : 4.30 - 11.10 10*3/?L. The reference range was not used to interpret this result as normal/abnormal . RBC (test code = See_Comment L [Automated 789-8) message] The sy stem which generated this result transmitted reference range : 3.93 - 5.25 10*6/?L. The reference range was not used to interpret this result as normal/abnormal . HGB (test code = 7.1 g/dL 11.6-15 L 718-7) HCT (test code = 24.1 % 35.7-45.2 L 4544-3) MCV (test code = 62.8 fL 80.6-95.5 L 787-2) MCH (test code = 18.5 pg 25.9-32.8 L 785-6) MCHC (test code = 29.5 g/dL 31.6-35.1 L 786-4) RDW-SD (test code = 44.4 fL 39-49.9 58935-6) RDW-CV (test code = 20.3 % 12-15.5 H 788-0) PLT (test code = See_Comment [Automated 777-3) message] The sy stem which generated this result transmitted reference range : 166 - 358 10*3/ ?L. The reference r caleb was not used to interpret this result as normal/abnormal . MPV (test code = 10.0 fL 9.5-12.9 57516-5) NRBC/100 WBC (test See_Comment [Automat ed code = 3727422372) message] The system which generated this result transmitted reference range : 0.0 - 10.0 /100 WBCs. The refer ence range was not u sed to interpret th is result as normal/abnormal . NRBC x10^3 (test code <0.01 See_Comment [Auto mated = 9931505937) message] The s ystem which generated this result transmitted reference range : 10*3/?L. The reference range was not used to interpret this result as normal/abnormal . GRAN MAT (NEUT) % 47.5 % (test code = 770-8) IMM GRAN % (test code 0.00 % = 8842551116) LYMPH % (test code = 41.8 % 736-9) MONO % (test code = 9.6 % 5905-5) EOS % (test code = 0.4 % 713-8) BASO % (test code = 0.7 % 706-2) GRAN MAT x10^3(ANC) 1.34 10*3/uL 1.88-7.09 L (test code = 6602223676) IMM GRAN x10^3 (test <0.03 0-0.06 code = 3483657626) LYMPH x10^3 (test code 1.18 10*3/uL 1.32-3.29 L = 731-0) MONO x10^3 (test code 0.27 10*3/uL 0.33-0.92 L = 742-7) EOS x10^3 (test code = <0.03 0.03-0.39 L 711-2) BASO x10^3 (test code <0.03 0.01-0.07 = 704-7) ELLIPTO/OVAL (test 2+ See_Comment A [Automat ed code = 85860-0) message] The system which generated this result transmitted reference range : (none). The reference range was not used to interpret this result as normal/abnormal . TARGET CELLS (test 2+ See_Comment A [Automat ed code = 33284-9) message] The system which generated this result transmitted reference range : (none). The reference range was not used to interpret this result as normal/abnormal . Lab Interpretation Abnormal (test code = 76531-3) [facility] Test Item Value Reference Range Interpretation Comments APPEARANCE (test code Slightly Hazy Clear A = 7375214847) COLOR (test code = Pale Yellow Yellow A 7843811723) PH (test code = 4.8-8.0 7133164983) SP GRAVITY (test code 1.003-1.030 = 6339941995) GLU U QUAL (test code Negative Negative = 1134392516) BLOOD (test code = Moderate Negative A 0560249146) KETONES (test code = Negative Negative 8964096975) PROTEIN (test code = Negative Negative 2887-8) UROBILIN (test code = 0.2 mg/dL See_Comment [Auto mated 8390542496) message] The system which generated this result transmit chacorta reference range : 0-1.0 mg/dL. Th e reference range was not used to interpret this result as normal/abnormal . BILIRUBIN (test code = Negative Negative 2547232328) NITRITE (test code = Negative Negative 3740100200) LEUK EWA (test code Negative Negative = 6381824176) RBC/HPF (test code = See_Comment [Autom ated 0812532200) message] The system which generated this result transmit chacorta reference range : 0 - 3 HPF. The reference range was not used to interpret this result as normal/abnormal . WBC/HPF (test code = See_Comment [Autom ated 4011686544) message] The system which generated this result transmit chacorta reference range : 0 - 5 HPF. The reference range was not used to interpret this result as normal/abnormal . BACTERIA (test code = Moderate Negative A 0271293903) SQ EPITH (test code = HPF 7029239756) Lab Interpretation Abnormal (test code = 83456-1) [facility] (62480[facility]2018-11-25 16:28:00 Test Item Value Reference Range Interpretation Comments NA (test code = 142 mmol/L 135-145 6210160498) K (test code = 3.6 mmol/L 3.5-5 1784558358) CL (test code = 108 mmol/L 98-108 1858100798) CO2 TOTAL (test code = 26 mmol/L 23-31 6475641006) AGAP (test code = 2-16 6964487250) BUN (test code = 14 mg/dL 7-23 6328156759) GLUCOSE (test code = 84 mg/dL 70-110 1263989454) CREATININE (test code = 0.39 mg/dL 0.5-1.04 L 9033133372) TOTAL BILI (test code = 0.4 mg/dL 0.1-1.0 1226349492) CALCIUM (test code = 7.9 mg/dL 8.6-10.6 L 3044197954) T PROTEIN (test code = 6.9 g/dL 6.3-8.2 1554389914) ALBUMIN (test code = 4.1 g/dL 3.5-5 8142521719) ALK PHOS (test code = 35 U/L 34-122 4942514187) ALT(SGPT) (test code = 16 U/L 9-51 6749845749) AST(SGOT) (test code = 21 U/L 13-40 6510047507) eGFR Calculation mL/min/1.73m2 (Non-) (test code = 9850889455) eGFR Calculation mL/min/1.73m2 () (test code = 2915778841) EDWARD (test code = EDWARD) Association of Glomerular Filtration Rate (GFR) and Staging of Kidney Disease*+ + + +| GFR (mL/min/1.73 m2)?| With Kidney Damage?|?Without Kidney Damage+ --------+ --------+ +|?>90?|?S tage one?|? Normal?+ ---------+ ---------+ +|?60-89? |?Stage two?|? Decreased GFR? + --+ --+ ------+|?30-59?|?Stage three?|? Stage three? + --+ --+ ------+|?15-29??|?Stag e four? |? Stage four?+ -------+ -------+ +|?<15 (or dialysis)?|?Stage five? |? Stage five?+ -------+ -------+ +*Each stage assumes the associated GFR level has been in effect for at least three months.?Stages 1 to 5, with or without kidney disease, indicate chronic kidney disease.Notes: Determination of stages one and two (with eGFR >59mL/min/1.73 m2) requires estimation of kidney damage for at least three months as defined by structural or functional abnormalities of the kidney, manifested by either:Pathological abnormalities or Markers of kidney damage (including abnormalities in the composition of the blood or urine or abnormalities in imaging tests). Lab Interpretation Abnormal (test code = 44244-5) [facility] 16:[facility] Test Item Value Reference Range Interpretation Comments LIPASE (test code = 1916508862) 104 U/L 0-220 Lab Interpretation (test code = Normal 69982-6) [facility] [id number] 15:47:00 Test Item Value Reference Range Interpretation Comments POCT PREG (test code = 1605) negative On board controls acceptable with present C Line (test code = 3574) POCT PREG LOT # (test code = 3575) [id number] POCT PREG TEST DATE (test 04-19-2020 code = 3576) Lab Interpretation (test code = Normal 89153-8) [facility]"
[2023-01-05] MEDS ORDERED: DIPHENHYDRAMINE 50 MG/ML VIAL ONE (06:32)
[2023-01-05] MEDS ORDERED: PROMETHAZINE INJ 25 MG/ML AMP ONE (06:32)
[2023-01-05] MEDS ORDERED: NA CHLORIDE 0.9% 1,000 ML ONE (06:32)
[2023-01-05] MEDS ORDERED: KETOROLAC 30 MG/ML INJ ONE (06:32)
[2023-01-05] MEDS ORDERED: ONDANSETRON 4 MG/2 ML VIAL ONE (06:32)
[2023-01-05] MEDS ORDERED: METOCLOPRAMIDE 10 MG/2mL INJ ONE (06:38)
[2023-01-05 06:58] LABS: Specific Gravity > 1.030 (1.005-1.030)
[2023-01-05 07:07] LABS: Absolute Lymphocytes (CBC) 1.3 K/uL (0.7-4.9); Lymphocytes % 41.4 % (15.3-44.8); MCV 62.2 fL (80-100); MPV 8.7 fL (7.6-11.3); Platelets 219 thou/uL (152-406); RBC Red Blood Cell Count 4.82 M/uL (3.86-4.86)
[2023-01-05 07:08] LABS: SARS-CoV-2 Antigen Rapid Res Negative (Negative)
[2023-01-05 07:09] LABS: Specific Gravity > 1.030 (1.005-1.030); Urine Bacteria 20-50 /HPF (<20); Urine Bilirubin NEGATIVE (Negative); Urine Blood Trace (Negative); Urine Clarity Extremely Turbid (Clear); Urine Color Yellow (Yellow); Urine Glucose NEGATIVE (Negative); Urine Mucus 4+ /HPF (None Seen); Urine Protein TRACE (Negative); Urine RBC <5 /HPF (None Seen); Urine Urobilinogen Normal (Normal); Urine pH 5.5 (5.0-7.0)
[2023-01-05 07:18] LABS: ALT/SGPT 26 U/L (13-56); AST/SGOT 18 U/L (15-37); Albumin 3.9 g/dL (3.4-5.0); Alkaline Phosphatase 50 U/L (45-117); BUN Blood Urea Nitrogen 21 mg/dL (7-18); Bicarbonate 30 mEq/L (21-32); Bilirubin Total 0.3 mg/dL (0.2-1.0); Glomerular Filtration Rate 117 ml/min (=/>90); Glucose Level 101 mg/dL (74-106); Potassium 3.4 mEq/L (3.5-5.1); Protein, Total 7.8 g/dL (6.4-8.2); Sodium Level 138 mEq/L (136-145)
[2023-01-05 07:22] LABS: C-Reactive Protein < 2.90 mg/L (<3.00)
[2023-01-05 08:02] LABS: Anisocytosis 2+; Blood Morphology Comment NOTED (NOT SEEN); Platelet Estimate ADEQ; White Blood Cell Scan OK (OK)
--- NOTE | 2023-01-05 08:02 | ER ---
Nurse's Notes [facility] Name: Anais Andujar Age: 42 yrs Sex: Female : 1980 Arrival Date: 01/05/2023 Time: 05:52 Bed 15 Private MD: Diagnosis: Chills (without fever);Body aches;Anemia, unspecified;UTI/ Urinary tract infection, site not specified Presentation: 01/05 06:03 Chief complaint: Patient states: frontal and temporal headache pain of 3 at this time, pf1 with dizziness and nausea,onset 3 days. 06:03 Coronavirus screen: Vaccine status: Patient reports being unvaccinated. Client denies pf1 travel out of the [place] in the last 14 days. Client presents with at least one sign or symptom that may indicate coronavirus-19. Ebola Screen: Patient negative for fever greater than or equal to 101.5 degrees Fahrenheit, and additional compatible Ebola Virus Disease symptoms. Initial Sepsis Screen: Does the patient meet any 2 criteria? No. Patient's initial sepsis screen is negative. Does the patient have a suspected source of infection? No. Patient's initial sepsis screen is negative. Risk Assessment: Do you want to hurt yourself or someone else? Patient reports no desire to harm self or others. 06:03 Method Of Arrival: Ambulatory pf1 06:03 Acuity: RUDOLPH 3 pf1 06:03 Note Slurry Mixer ID [id number]. pf1 Historical: - Allergies: 06:22 Morphine; pf1 - PMHx: 06:22 Anemia; pf1 - PSHx: 06:22 Ligation of fallopian tube; pf1 - Immunization history:: Adult Immunizations up to date, Client reports having NOT received the Covid vaccine. Last tetanus immunization: > 10 years ago Flu vaccine is not up to date. - Social history:: Smoking status: Patient denies any tobacco usage or history of. Patient/guardian denies using alcohol, street drugs. - Family history:: not pertinent. Screenin:23 [facility] ED Fall Risk Assessment (Adult) History of falling in the last 3 months, pf1 including since admission No falls in past 3 months (0 pts) Confusion or Disorientation No (0 pts) Intoxicated or Sedated No (0 pts) Impaired Gait No (0 pts) Mobility Assist Device Used No (0 pt) Altered Elimination No (0 pt) Score/Fall Risk Level 0 - 2 = Low Risk Oriented to surroundings, Maintained a safe environment, Educated pt \T\ family on fall prevention, incl call for assistance when getting out of bed, Assessed \T\ reinforced patient's understanding of fall precautions, Provided non-skid footwear, Hourly rounding (assess needs \T\ fall precautionary measures) done, Used ambulatory aids as needed (educated on \T\ assisted with), Used gait belt as appropriate. Abuse screen: Denies threats or abuse. Nutritional screening: No deficits noted. Tuberculosis screening: No symptoms or risk factors identified. Assessment: 06:05 General: Appears in no apparent distress. comfortable, well groomed, well developed, pf1 Behavior is calm, cooperative, appropriate for age, quiet. 06:05 Pain: Complains of pain in head Pain currently is 3 out of 10 on a pain scale. Pain pf1 began 2-3 days ago. Neuro: Reports dizziness, headache. Cardiovascular: No deficits noted. Capillary refill < 3 seconds Patient's skin is warm and dry. Respiratory: No deficits noted. Airway is patent Respiratory effort is even, unlabored, Respiratory pattern is regular, symmetrical. GI: Abdomen is round non-distended, Reports nausea. : No deficits noted. No signs and/or symptoms were reported regarding the genitourinary system. EENT: No deficits noted. No signs and/or symptoms were reported regarding the EENT system. Derm: No deficits noted. No signs and/or symptoms reported regarding the dermatologic system. 07:00 Reassessment: Patient appears in no apparent distress at this time. No changes from [facility] previously documented assessment. Patient and/or family updated on plan of care and expected duration. Pain level reassessed. Patient is alert, oriented x 3, equal unlabored respirations, skin warm/dry/pink. 07:54 Reassessment: Dr. De La Rosa at bedside with fabrication machine operator speaking with pt. [facility] Vital Signs: 06:03 BP 116 / 90; Pulse 74; Resp 18; Temp 97.3; Pulse Ox 98% on R/A; Weight 77.5 kg; Height pf1 5 ft. 4 in. ; Pain 3/10; 07:17 BP 104 / 69; Pulse 70; Resp 16 S; Pulse Ox 100% on R/A; kc6 06:03 Body Mass Index 29.33 (77.50 kg, 162.56 cm) pf1 06:03 Pain Scale: Adult pf1 ED Course: 05:59 Patient arrived in ED. jj6 06:07 Jasen Parry MD is Attending Physician. sp4 06:12 Josr Chery, RN is Primary Nurse. bp 06:22 Triage completed. pf1 06:23 Patient has correct armband on for positive identification. Bed in low position. Call pf1 light in reach. 06:45 Inserted saline lock: 20 gauge in right forearm, using aseptic technique. Blood bp collected. 07:00 Report received from Josr Chery RN. kc6 07:00 Arm band placed on. kc6 07:45 Attending Physician role handed off by Jasen Parry MD ms3 07:45 Billy De La Rosa DO is Attending Physician. ms3 08:00 Kiran Flores DO is Referral Physician. ms3 08:12 No provider procedures requiring assistance completed. IV discontinued, intact, kc6 bleeding controlled, No redness/swelling at site. Pressure dressing applied. Administered Medications: 06:44 Drug: Ketorolac IVP 30 mg IVP once Route: IVP; Site: right forearm; bp 07:55 Follow up: Response: No adverse reaction; Pain is decreased kc6 06:44 Drug: metoCLOPramide IVP 10 mg IVP once; over 1 to 2 minutes Route: IVP; Site: right bp forearm; 07:55 Follow up: Response: No adverse reaction; Nausea is decreased kc6 06:44 Drug: diphenhydrAMINE IVP 25 mg IVP once Route: IVP; Site: right forearm; bp 07:55 Follow up: Response: No adverse reaction; RASS: Drowsy (-1) kc6 06:44 Drug: NS 0.9% IV 1000 ml IV at 1 bolus Per protocol; 1000 mL bolus Route: IV; Rate: 1 bp bolus; Site: right forearm; 07:56 Follow up: Response: No adverse reaction; IV Status: Completed infusion; IV Intake: kc6 1000ml 06:45 Not Given (Other Intervention Used): [id number] mg PO once bp Medication: 08:12 VIS not applicable for this client. kc6 Intake: 07:56 IV: 1000ml; Total: 1000ml. kc6 Outcome: 08:02 Discharge ordered by . ms3 08:12 Discharged to home ambulatory, kc6 08:12 Condition: stable 08:12 Discharge instructions given to patient, Instructed on discharge instructions, follow up and referral plans. medication usage, Demonstrated understanding of instructions, follow-up care, medications, Prescriptions given X 1, 08:12 Patient left the ED. kc6 Signatures: Josr Chery, RN RN Billy Bingham DO DO ms3 Jyoti Usj6 Jolly Shah RN RN kc6 Yolande Ventura RN RN pf1 Jasen Parry MD MD sp4 Corrections: (The following items were deleted from the chart) 06:22 06:19 Chief complaint: Patient states: frontal and temporal headache pain of 3 at this pf1 time, with dizziness and nausea,onset 3 days. pf1
--- NOTE | 2023-01-05 08:02 | EDPHYS ---
Physician Documentation [facility] Name: Anais Andujar Age: 42 yrs Sex: Female : 1980 Arrival Date: 01/05/2023 Time: 05:52 Bed 15 Private MD: ED Physician Billy De La Rosa HPI: 01/05 06:16 This 42 yrs old Female presents to ER via Unassigned with complaints of sp4 Nausea, Headache. 06:36 42-year-old female who has history of anemia presents with a cute onset of dizziness, sp4 nausea, headache, feeling unwell chills, and a past 3 days. Patient did not report any fevers. Denied vomiting reported nausea. Historical: - Allergies: 06:22 Morphine; pf1 - PMHx: 06:22 Anemia; pf1 - PSHx: 06:22 Ligation of fallopian tube; pf1 - Immunization history:: Adult Immunizations up to date, Client reports having NOT received the Covid vaccine. Last tetanus immunization: > 10 years ago Flu vaccine is not up to date. - Social history:: Smoking status: Patient denies any tobacco usage or history of. Patient/guardian denies using alcohol, street drugs. - Family history:: not pertinent. ROS: 06:36 Constitutional: Negative for fever, and weight loss, positive for chills, dizziness, sp4 nausea positive for headache Eyes: Negative for injury, pain, redness, and discharge, 06:36 All other systems are negative, Exam: 06:36 Constitutional: This is a well developed, well nourished patient who is awake, alert, sp4 and in no acute distress. Head/Face: Normocephalic, atraumatic. Eyes: Pupils equal round and reactive to light, extra-ocular motions intact. Lids and lashes normal. Conjunctiva and sclera are not injected. Cornea within normal limits. Periorbital areas with no swelling, redness, or edema. ENT: Nares patent. No nasal discharge, no septal abnormalities noted. Tympanic membranes are normal and external auditory canals are clear. Oropharynx with no redness, swelling, or masses, exudates, or evidence of obstruction, uvula midline. Mucous membranes moist. Neck: Trachea midline, no thyromegaly or masses palpated, and no cervical lymphadenopathy. Supple, full range of motion without nuchal rigidity, or vertebral point tenderness. Chest/axilla: Normal chest wall appearance and motion. Nontender with no deformity. No lesions are appreciated. Cardiovascular: Regular rate and rhythm with a normal S1 and S2. No gallops, murmurs, or rubs. Normal PMI, no JVD. No pulse deficits. Respiratory: Lungs have equal breath sounds bilaterally, clear to auscultation and percussion. No rales, rhonchi or wheezes noted. No increased work of breathing, no retractions or nasal flaring. Abdomen/GI: Soft, non-tender, with normal bowel sounds. No distension or tympany. No guarding or rebound. No evidence of tenderness throughout. Back: No spinal tenderness. No costovertebral tenderness. Skin: Warm, dry with normal turgor. Normal color with no rashes, no lesions, and no evidence of cellulitis. MS/ Extremity: Pulses equal, no cyanosis. Neurovascular intact. Full, normal range of motion. Neuro: Awake and alert, GCS 15, oriented to person, place, time, and situation. Cranial nerves II-XII grossly intact. Motor strength 5/5 in all extremities. Sensory grossly intact. Psych: Awake, alert, with orientation to person, place and time. Behavior, mood, and affect are within normal limits Vital Signs: 06:03 BP 116 / 90; Pulse 74; Resp 18; Temp 97.3; Pulse Ox 98% on R/A; Weight 77.5 kg; Height pf1 5 ft. 4 in. ; Pain 3/10; 07:17 BP 104 / 69; Pulse 70; Resp 16 S; Pulse Ox 100% on R/A; kc6 06:03 Body Mass Index 29.33 (77.50 kg, 162.56 cm) pf1 06:03 Pain Scale: Adult pf1 MDM: 06:07 Patient medically screened. sp4 06:36 Differential diagnosis: gastritis, viral gastroenteritis, gastroenteritis. Data sp4 reviewed: vital signs, nurses notes, old medical records, lab test result(s), CBC, electrolytes, Flu: hepatic panel, urinalysis, UPT:. 07:02 Consideration of Admission/Observation Escalation of care including sp4 admission/observation considered. ED course: Patient does not have signs of sepsis. 07:14 Transition of care: After a detail discussion of the patient's case, care is sp4 transferred to Billy De La Rosa DO. 07:14 Transition of care: Care assumed from Jasen Parry MD. ms3 08:02 Response to treatment: the patient's symptoms have mildly improved after treatment, and ms3 as a result, I will discharge patient. Special discussion: I discussed with the patient/guardian in detail that at this point there is no indication for admission to the hospital. It is understood, however, that if the symptoms persist or worsen the patient needs to return immediately for re-evaluation. ED course: Hammer Fitter Katheryn [id number] used for discharge instructions. Discussed labs with patient. Patient to follow-up with primary care physician in 2 to 3 days. Patient understands agrees with plan. All questions were answered. Return precautions discussed include worsening symptoms, or any other concerns.. 01/05 06:07 Order name: Test, Urine; Complete Time: 07:01 sp4 01/05 06:14 Order name: SARS RAPID; Complete Time: 07:14 sp4 01/05 06:14 Order name: Influenza Screen (a \T\ B); Complete Time: 07:18 sp4 01/05 06:15 Order name: CBC with Diff; Complete Time: 08:04 sp4 01/05 06:15 Order name: CMP; Complete Time: 07:44 sp4 01/05 06:15 Order name: CRP; Complete Time: 07:44 sp4 01/05 06:15 Order name: Urinalysis W/Microscopic; Complete Time: 07:14 sp4 01/05 07:10 Order name: CBC Smear Scan; Complete Time: 08:04 EDME 01/05 06:07 Order name: Saline Lock; Complete Time: 06:43 sp4 Administered Medications: 06:44 Drug: Ketorolac IVP 30 mg IVP once Route: IVP; Site: right forearm; bp 07:55 Follow up: Response: No adverse reaction; Pain is decreased kc6 06:44 Drug: metoCLOPramide IVP 10 mg IVP once; over 1 to 2 minutes Route: IVP; Site: right bp forearm; 07:55 Follow up: Response: No adverse reaction; Nausea is decreased kc6 06:44 Drug: diphenhydrAMINE IVP 25 mg IVP once Route: IVP; Site: right forearm; bp 07:55 Follow up: Response: No adverse reaction; RASS: Drowsy (-1) kc6 06:44 Drug: NS 0.9% IV 1000 ml IV at 1 bolus Per protocol; 1000 mL bolus Route: IV; Rate: 1 bp bolus; Site: right forearm; 07:56 Follow up: Response: No adverse reaction; IV Status: Completed infusion; IV Intake: kc6 1000ml 06:45 Not Given (Other Intervention Used): [id number] mg PO once bp Disposition Summary: 01/05/23 08:02 Discharge Ordered Notes: Location: Home ms3 Condition: Stable ms3 Diagnosis - Chills (without fever) ms3 - Body aches ms3 - Anemia, unspecified ms3 - UTI/ Urinary tract infection, site not specified ms3 Followup: ms3 - With: Kiran Flores DO - When: 2 - 3 days - Reason: Re-evaluation by your physician Discharge Instructions: - Discharge Summary Sheet ms3 - Anemia ms3 - Urinary Tract Infection, Adult ms3 Forms: - Medication Reconciliation Form ms3 - Thank You Letter ms3 - Antibiotic Education ms3 - Prescription Opioid Use ms3 - Patient Portal Instructions ms3 - Leadership Thank You Letter ms3 Prescriptions: - Macrobid 100 mg Oral Capsule - take 1 capsule by ORAL route every 12 hours for 10 days; 20 capsule; Refills: ms3 0, Product Selection Permitted Signatures: Dispatcher [employer] Josr Bruno, RN RN Billy Bingham DO DO ms3 Yolande Ventura RN RN pf1 Jasen Parry MD MD sp4 Jolly Shah RN kc6
[2023-01-05 08:22] VITALS: TEMP 97.3
[2023-01-05 08:28] VITALS: BP 104/69; O2SAT 100
== END 2023-01-05 08:12 | disposition home or self-care (01) ==
LOC: ER 05:52
DX: N39.0 Urinary tract infection, site not specified (principal); D64.9 Anemia, unspecified; M79.10 Myalgia, unspecified site; Z88.5 Allergy status to narcotic agent; Z20.822 Contact with and (suspected) exposure to COVID-19
CPT/HCPCS: 36415; 80053; 81001; 81025; 85025; 86140; 87804; 87811; 96361; 96374; 96375; 99284; J1200; J2405; J2550; J2765; J7030